=== PATIENT | female | born 1960 | race Caucasian/White ===

== ENCOUNTER → 2021-05-21 15:22 | Outpatient (CLI) | payer OTHER, SELFPAY ==
--- NOTE | ~2021-05-21 | US_ITS ---
EXAMINATION: US thyroid DATE: 05/21/2021 15:49 INDICATION: Nontoxic goiter, unspecified. TECHNIQUE: Multiple ultrasound images of the thyroid were obtained. COMPARISON: Ultrasound 08/17/2018 FINDINGS: The right thyroid lobe measures 3.8 x 1.1 x 1.0 cm. The left thyroid lobe measures 3.6 x 1.1 x 1.0 c m. In the right thyroid lobe, there is a 2 mm nodule. In the left thyroid lobe, there is a 6 mm loren d, hypoechoic, kskbl-hoix-xexl nodule with lobulated margin without echogenic foci (TI-RADS TR4), sta ble from 08/17/2018. IMPRESSION: 1. Small thyroid nodules, likely not clinically significant. No follow-up is needed. Reviewed, dictated and finalized at location E. Y RECORD CLERK IMPRESSION: 1. Small thyroid nodules, likely not clinically significant. No follow-up is ne eded.
--- NOTE | ~2021-05-21 | US_ITS ---
EXAMINATION: US carotid duplex BI DATE: 05/21/2021 15:49 INDICATION: Dizziness and giddiness. Vertigo. TECHNIQUE: Grayscale, color Doppler, and pulsed Doppler images of the cervical carotid arteries were obtained. The degree of vessel stenosis is placed in one of the following categories: normal, <50%, 5 0-69%, >=70% but less than near-occlusion, near-occlusion, or total occlusion. Note that percent sten osis relative to normal distal artery lumen diameter is indirectly measured from velocity measurement s as described by Julien, et al. Radiology 2003; 229:340-346. COMPARISON: None. FINDINGS: RIGHT: The right common carotid artery (CCA) peak systolic velocity (PSV) is 108 cm/s. The right internal ca rotid artery (ICA) PSV is 118 cm/s. The right ICA end-diastolic velocity (EDV) is 49 cm/s. The right ICA/CCA PSV ratio is 1.5. Grayscale and color Doppler images yield an estimate of <50% diameter reduc tion from plaque in the ICA. There is antegrade flow in the right vertebral artery. LEFT: The left CCA PSV is 124 cm/s. The left ICA PSV is 131 cm/s. The left ICA EDV is 56 cm/s. The left ICA /CCA PSV ratio is 1.3. Grayscale and color Doppler images yield an estimate of <50% diameter reductio n from plaque in the ICA. There is antegrade flow in the left vertebral artery. IMPRESSION: 1. <50% stenosis in the right internal carotid artery. 2. <50% stenosis in the left internal carotid artery. Reviewed, dictated and finalized at location E. P KILLER
== END ==
PROVIDERS: PCP Family Medicine; Visit Provider Physician Assistant Medical
DX: E04.2 Nontoxic multinodular goiter (principal); I65.23 Occlusion and stenosis of bilateral carotid arteries
CPT/HCPCS: 76536; 93880

== ENCOUNTER 2021-05-21 16:01 | Outpatient (CLI) | payer OTHER, SELFPAY ==
--- NOTE | 2021-05-21 16:07 | ECG_ITS ---
Measurements Intervals [place] Rate: 76 P: 58 AK: 142 QRS: 6 QRSD: 122 T: 46 QT: 368 QTc: 415 Interpretive Statements SINUS RHYTHM INCOMPLETE RIGHT BUNDLE BRANCH BLOCK CONSIDER INFERIOR INFARCT, AGE INDETERMINATE BASELINE WANDER- V1-V2 ABNORMAL ECG Electronically Signed On 05-21-2021 16:44:44 WEB SEARCH EVALUATOR by Mathieu Oconnor D.O.
== END 2021-05-21 16:02 | disposition home or self-care (01) ==
LOC: ANHCARD 16:03
PROVIDERS: PCP Family Medicine; Visit Provider Physician Assistant Medical
DX: R07.9 Chest pain, unspecified (principal); R94.31 Abnormal electrocardiogram [ECG] [EKG]; I45.10 Unspecified right bundle-branch block
CPT/HCPCS: 93005

== ENCOUNTER 2021-06-08 07:26 | Outpatient (CLI) | payer OTHER, SELFPAY ==
--- NOTE | 2021-06-08 07:58 | ECHO_ITS ---
Patient Info Name: Lizbeth Mascorro Age: 60 years : 1960 Gender: Female Ht: 65 in Wt: 140 lbs BSA: 1.71 m2 HR: 74 bpm BP: 132 / 83 mmHg Technical Quality: Good Exam Date: 06/08/2021 8:08 AM Exam Location: [facility] Patient Status: Outpatient Admit Date: 06/08/2021 Staff Ordering Physician: Padmini Hercules PAC Piper Helper: Xi Huynh RDCS Attending Provider: Padmini Hercules Referring Physician: Delisa OLMOS; Exam Type: CA echo doppler color flow Study Info Indications I45.10 - Unspecified right bundle-branch block Complete two-dimensional, color flow and Doppler transthoracic echocardiogram is performed. Summary 1. Complete two-dimensional, color flow and Doppler transthoracic echocardiogram is performed. 2. Left ventricular chamber dimension is normal. 3. Left ventricular systolic function is normal, estimated at 65-70%. 4. The left ventricular diastolic function is normal. 5. E/e' 9 is minimally elevated. 6. Global longitudinal strain is normal at -17.4%. 7. No pulmonary hypertension, estimated pulmonary arterial systolic pressure is 27 mmHg. Left Ventricle E/e' 9 is minimally elevated. Global longitudinal strain is normal at -17.4%. Left ventricular chamber dimension is normal. Left ventricular systolic function is normal, estimated at 65-70%. The left ventricular diastolic function is normal. Right Ventricle Right ventricular systolic function is normal and with normal TAPSE 2.3 cm. Right ventricular chamber dimension is normal. Left Atria Left atrial chamber dimension is normal. Right Atria Right atrial chamber dimension is normal. Aortic Valve The aortic valve is trileaflet. There is no aortic valve stenosis. There is no aortic valve regurgitation. Pulmonic Valve There is no pulmonic regurgitation. Mitral Valve There is no mitral valve stenosis. There is no mitral valve regurgitation. Tricuspid Valve There is no tricuspid valve regurgitation. No pulmonary hypertension, estimated pulmonary arterial systolic pressure is 27 mmHg. Pericardium/Pleural There is no pericardial effusion. Inferior Vena Cava Normal inferior vena cava with >50% collapse upon inspiration consistent with normal right atrial pressure, 5 mmHg. Aorta The aortic root size at the sinus of Valsalva is normal. Left Ventricular Outflow Tract Name Value Normal LVOT 2D LVOT Diameter 2.0 cm LVOT Doppler LVOT Peak Gradient 4 mmHg LVOT Mean Gradient 2 mmHg LVOT VTI 19 cm LVOT VTI/AV VTI Ratio 0.9 LVOT Stroke Volume 59 ml LVOT CO 4.3 l/min LVOT CI 2.5 l/min/m2 Pulmonic Valve Name Value Normal RVOT Doppler RVOT
--- NOTE | 2021-06-11 16:15 | WPDHOLTEREM ---
Holter/Event Monitor Holter/Event Monitor Date of procedure: 06/08/21 Holter/Event Procedure: 24 Hr Holter Monitor Indications: Dizziness Conclusion: 1. 24 hour holter monitor on 06/08/21. 2. Underlying rhythm is sinus rhythm. HR range 62-136 bpm; average HR 82 bpm. 3. There are 8 premature supraventricular complexes and 4 supraventricular couplets. No supraventricular tachycardia. 4. No premature ventricular complexes. No ventricular tachycardia. 5. No sinoatrial or atrioventricular blocks. No significant pauses greater than 2 seconds. 6. No symptoms available for correlation.
== END 2021-06-08 07:27 | disposition home or self-care (01) ==
LOC: ANHCARD 07:27
PROVIDERS: PCP Family Medicine; Visit Provider Physician Assistant Medical
DX: I45.10 Unspecified right bundle-branch block (principal); R42 Dizziness and giddiness
CPT/HCPCS: 93225; 93226; 93306

== ENCOUNTER → 2023-04-16 09:58 | Outpatient (CLI) | payer OTHER, SELFPAY ==
--- NOTE | ~2023-04-16 | XR_ITS ---
EXAMINATION: XR abdomen/kub 1V DATE: 04/16/2023 11:00 INDICATION: Hematuria. Left flank pain. TECHNIQUE: A supine view of the abdomen on 2 radiographs was obtained. COMPARISON: None. FINDINGS: There are no dilated loops of bowel. There is a large volume of stool in the colon. There i s an 8 x 4 mm calcification in the area of proximal left ureter. IMPRESSION: 1. 8 x 4 mm calcification in the area of proximal left ureter that may be a ureteral stone. Reviewed, dictated and finalized at location E. SERVICE TEAM MEMBER IMPRESSION: 1. 8 x 4 mm calcification in the area of proximal left ureter that may be a ure teral stone.
== END ==
PROVIDERS: PCP Family Medicine; Visit Provider Nurse Practitioner Family
DX: R31.9 Hematuria, unspecified (principal)
CPT/HCPCS: 74018

== ENCOUNTER → 2023-04-17 10:44 | Outpatient (CLI) | payer OTHER, SELFPAY ==
--- NOTE | ~2023-04-17 | CT_ITS ---
Non-contrast CT scan of the Abdomen and Pelvis Clinical indication: Microscopic hematuria Technique: 2.5 mm axial scans were obtained through the abdomen and pelvis without intravenous or or al contrast. Dose reduction technique was used on this scan by utilizing automated exposure control a nd iterative reconstruction technique. The dose-length product (DLP) was 273.58 mGy-cm. Findings: Images through the lung bases reveal no abnormalities. There is a 5-6 mm round stone at the left mid ureter, with mild left hydroureteronephrosis. No right ureteral stone or right hydronephrosis. There is a 3 mm nonobstructing right renal stone present. The liver, spleen, pancreas, gallbladder, and adrenals appear normal. There is no aortic aneurysm. There is no evidence of bowel obstruction. Images through the pelvis were performed. There is no evidence of ascites or lymphadenopathy. Urinary bladder unremarkable. No pelvic mass seen. Impression: 5-6 mm mid left ureteral stone, with mild left hydroureteronephrosis. 3 mm nonobstructing right renal stone. Reviewed, dictated and finalized at [facility]. DAYCARE PROVIDER Impression: 5-6 mm mid left ureteral stone, with mild left hydroureteronephrosis. 3 mm nonobstructing right renal stone.
== END ==
PROVIDERS: PCP Nurse Practitioner Family; Visit Provider Nurse Practitioner Family
DX: N13.2 Hydronephrosis with renal and ureteral calculous obstruction (principal); R93.5 Abnormal findings on diagnostic imaging of other abdominal regions, including retroperitoneum; R31.29 Other microscopic hematuria
CPT/HCPCS: 74176

== ENCOUNTER → 2023-04-29 10:13 | Outpatient (CLI) | payer OTHER, SELFPAY ==
--- NOTE | ~2023-04-29 | CT_ITS ---
Non-contrast CT scan of the Abdomen and Pelvis Clinical indication: Left ureteral stone Technique: 2.5 mm axial scans were obtained through the abdomen and pelvis without intravenous or or al contrast. Dose reduction technique was used on this scan by utilizing automated exposure control a nd iterative reconstruction technique. The dose-length product (DLP) was 296.55 mGy-cm. COMPARISON: 04/17/2023 Findings: Images through the lung bases reveal no abnormalities. 5 mm stone again noted left ureter, with mild distal migration, now at the level of the pelvic brim ( axial image 74). There is minimal fullness of left renal collecting system. Small nonobstructing righ t renal stone again noted. The liver, spleen, pancreas, gallbladder, and adrenals appear normal. There is no aortic aneurysm. There is no evidence of bowel obstruction. Images through the pelvis were performed. There is no evidence of ascites or lymphadenopathy. Urinary bladder unremarkable. No pelvic mass seen. Impression: Mild distal migration of 5 mm left ureteral stone, now present at the level of the L5-S1 disc space. Minimal left hydronephrosis. Stable small nonobstructing right renal stone. Reviewed, dictated and finalized at [facility]. ICE VEHICLE OPERATOR Impression: Mild distal migration of 5 mm left ureteral stone, now present at the level of the L5-S1 disc space. Minimal left hydronephrosis. Stable small nonobstructing right renal stone.
== END ==
PROVIDERS: PCP Nurse Practitioner Family; Visit Provider Nurse Practitioner Family
DX: N20.1 Calculus of ureter (principal); N20.0 Calculus of kidney
CPT/HCPCS: 74176

== ENCOUNTER 2023-05-13 00:37 | Day surgery (SDC) | payer OTHER, SELFPAY ==
[2023-05-05 15:30] VITALS: BMI 23.6
--- NOTE | 2023-05-05 15:35 | PC.NURSE ---
Report to the Outpatient Waiting Room, entrance under the green pavilion located off [facility], at time 0600 on date 05/13/23. Planned Procedure Time: 0730. Time changes happen often and if your time is changed the preop area will call you the afternoon before. - You and your visitor will be asked to self-screen and do not enter if you have any COVID symptoms. - A mask is optional within the hospital at this time. Patients may have clear liquids (water, carbonated beverages, clear teas, apple juice) until 3 hours prior to surgery with a maximum of 20 ounces. - No food from midnight until time of surgery Take the following medications with a SIP of water the morning of surgery: NONE DO NOT STOP ANY OF YOUR OTHER PRESCRIPTION MEDICATIONS PRIOR TO SURGERY ?EXCEPT THE FOLLOWING Medications to discontinue per physician: N/A Date to take last dose: N/A Please no make-up, nail syriac, hairspray, perfume, deodorant, or body powder the day of surgery. No jewelry (including any body piercings) or valuables the day of surgery, leave them at home. Please take a shower or bath the night before, or the morning of, surgery with an antibacterial soap. Wear comfortable, loose fitting clothing. - Jewelry must be removed prior to entering the operating room. Rings and piercings that are not removed may be cut off. - The hospital will not accept responsibility for valuables. - Please leave all valuables, including medications, at home the day of surgery. If you are going home after surgery, a licensed national dedicated truck driver must drive you home. - NO public transportation without another adult if you receive anesthesia. - We recommend that an adult stay with you for 24 hours following discharge. - We also recommend that you do not drive, make important decision, drink alcoholic beverages, or take any drugs that were not prescribed by your health care provider for at least 24 hours after your discharge time. Follow any additional instructions given to you from your surgeon. If you or anyone in your household have experienced Covid symptoms in the past week, please notify your surgeon or the nurse liaison at the phone number below for possible testing. Telephone instructions given to PT - CAROLINA CHAPARRO and asked if any additional questions and then verbalized understanding. Patient advised to call surgeon office or pre surgery nurse liaison [phone] if any additional questions.
[2023-05-13] VITALS (8 sets, daily range): BP systolic 120–148; BP diastolic 64–82; PULSE 62–84; RESP 12–16; TEMP 36.3–36.7; O2SAT 100
--- NOTE | ~2023-05-13 | XR_ITS ---
EXAMINATION: XR retrograde pyelo w/stent LT DATE: 05/13/2023 08:24 INDICATION: Left ureteral stone. TECHNIQUE: 4 intraoperative fluoroscopic views of the abdomen and pelvis were obtained. I was not pre sent. Fluoroscopy exposure time was 21 seconds. COMPARISON: CT abdomen and pelvis 04/29/23 FINDINGS: The left-sided retrograde pyelogram is unremarkable. The final images demonstrate a left in ternal ureteral stent in expected position. IMPRESSION: 1. Left internal ureteral stent in expected position. Reviewed, dictated and finalized at location A. CLEANER MACHINE TENDER
--- NOTE | 2023-05-13 07:14 | WPDANESEPPF ---
Anes - Initial Pre Proc Eval Procedure: Operation Date: 05/13/23 07:30 Proposed Procedures p Cystoscopy, Left Ureteroscopy, Left Retrograde Pyelogram, Left Stone Extraction, Possible Holmium Laser, Possible Left Stent Placement - Kenny Jordan MD Date/Time: 05/13/23 07:14 Surgeon: Kenny Jordan MD Pre Op Diagnosis: Lt Ureteral Stone Patient Data Age: 62 Gender: F Height: 1.65 m Weight: 63 kg Last Vital Signs Temp 36.3 C L 05/13/23 06:16 Pulse 77 05/13/23 06:16 Resp 16 05/13/23 06:16 BP 134/75 05/13/23 06:16 Pulse Ox 100 05/13/23 06:16 O2 Del Method Room Air 05/13/23 06:16 Allergies Allergy/AdvReac Type Severity Reaction Status Date / Time codeine AdvReac Unknown Vomiting Verified 05/13/23 06:11 Home Medications Medication Instructions Recorded Confirmed Type estradiol-norethindrone acet 1 1 tablet PO HS 09/20/19 05/05/23 History mg-0.5 mg tablet scopolamine base 1 mg over 3 days 1 patch transdermal Q72H 04/15/23 05/05/23 History transdermal patch Patient hx anesthesia problems: none Family hx anesthesia problems: none Results Review: All pre-operative results and documents have been reviewed as part of the pre-operative evaluation. [facility] Past Medical History Medical History BMI between 19-24,adult Dysuria Family History Family History Mother Family history of lymphoma Father No problems noted. Sibling No problems noted. Social History Social History Smoking status: Never smoker Second hand tobacco smoke exposure: No Alcohol intake: current Drinks per week: 2 Substance use: never Substance use type: does not use Lack of Transportation: No Lack of Food: Never True Current Housing: I Have Housing Concerned About Future Housing: No Difficulty Paying Gas/Electric Bills: No Difficulty Paying for Meds: No Currently Unemployed: No Education: High School Diploma/GED Difficulty w/ Childcare or Family Care: No Living arrangements: with family Occupation/Education: occupation Additional occupation/education comments: [employer] [place] Gender identity (if verbalized by the patient): Female Spiritual care concerns: No Anes - Eval Final PreProcedure Day of Procedure 05/13/23 07:14 Patient weight: normal Heart: regular rate and rhythm Lungs: clear to auscultation Airway: Mallampati scale class II Neurological: alert and oriented Last oral intake: >/= 8 hours ASA classification: I Emergent: no Anesthetic plan: proceed Anesthesia type and monitoring: general LMA and standard monitoring Results Review: All pre-operative results and documents have been reviewed as part of the pre-operative evaluation. Informed Consent: The patient's anesthetic plan and its attendant risks and benefits were discussed with the patient/family/POA. Questions were solicited and answers provided to the satisfaction of the patient/family/POA.
[2023-05-13] MEDS: LACTATED RINGERS 1,000 ML 30 ML IV CONT (07:23)
[2023-05-13] MEDS: SCOPOLAMINE 1 MG PATCH 1 PATCH TRANSDERM (07:24)
--- NOTE | 2023-05-13 07:39 | WPDHPUPDATE1 ---
History and Physical Update Update Date/Time: 05/13/23 07:39 History and Physical has been reviewed, including an updated exam of the patient. There are NO changes in the patient's condition. Risks, benefits, and alternatives have been discussed and questions answered. Patient agrees to proceed with procedure. Proceed with cystosocpy, left retrograde, left ureteroscopy with stone extraction, laser, stent placement
[2023-05-13] MEDS: ceFAZolin 2 GM/D5W 50 ML 2 GM/50 ML BAG IVPB (07:45)
[2023-05-13] MEDS: LIDOCAINE HCL 2% GEL UROJET 10 ML PKG MUCOUS MEM (07:45)
--- NOTE | 2023-05-13 08:32 | P.OP_ITS ---
Procedure Note - Detailed Date of Procedure 05/13/23 Pre-op Diagnosis Lt Ureteral Stone Post-op Diagnosis Same Procedure Performed CYSTOSCOPY, LEFT RETROGRADE PYELOGRAM, LEFT URETEROSCOPY WITH HOLMIUM LASER OF STONE, STONE EXTRACTION, LEFT URETERAL STENT PLACEMENT 20 KOSOVAN CONTOUR Surgeon Kenny Jordan MD Anesthesia General Description of Procedure PATIENT IS TAKEN THE OPERATIVE SUITE CORRECTLY IDENTIFIED. ONCE ANESTHESIA WAS OBTAINED SHE WAS PLACED IN A DORSAL LITHOTOMY POSITION AND PREPPED AND DRAPED USUAL STERILE FASHION. TWENTY-TWO KOSOVAN SCOPE WAS INSERTED THE BLADDER. THERE IS NO TUMORS NOTED. THERE WAS SOME MILD ERYTHEMA AROUND THE LEFT URETERAL ORIFICE. GUIDEWIRE WAS INSERTED. ORIFICE WAS DILATED WITH 8/10 DILATOR. RIGID URETERAL SCOPE WAS INSERTED IN. STONE WAS VISUALIZED IN THE INTRAMURAL URETER. IT WAS TOO LARGE TO RETRIEVED IN 1 PIECE. USING 200 MICRON FIBER WE LASERED THE STONE INTO VERY SMALL PIECES. SOME OF THESE WERE SENT FOR ANALYSIS. REINSPECTION REVEALED NO RESIDUAL STONES. PYELOGRAM WAS THEN PERFORMED. 4.8 CONTOUR STENT WAS THEN PLACED WITH THE PROXIMAL END COILED IN THE RENAL PELVIS AND THE DISTAL IN THE BLADDER. BLADDER WAS DRAINED. 2% VISCOUS LIDOCAINE WAS INSERTED INTO THE URETHRA PATIENT IS TAKEN RECOVERY STABLE CONDITION. SHE WILL FOLLOW-UP WEEK'S TIME FOR STENT REMOVAL. THIS COMPLETES DICTATION. PLEASE SEND A COPY THIS TO MY OFFICE. Estimated Blood Loss 0 Drains Yes Packing No Pathology Yes Complications No immediate complications Condition Stable Disposition PACU
== END 2023-05-13 10:15 | disposition home or self-care (01) ==
PROVIDERS: PCP Family Medicine; Visit Provider Urology
PROC: (CPT 52352; principal; 2023-05-13 07:30)
DX: N20.1 Calculus of ureter (principal)
CPT/HCPCS: 52356; 74420; 82365; 88300; A9270; C1769; C2617; J0690; J1100; J2405; J2704; J3010; J7120; Q9966

== ENCOUNTER 2023-07-11 11:46 | Outpatient (CLI) | payer OTHER, SELFPAY ==
--- NOTE | ~2023-07-11 | XR_ITS ---
XR abdomen/kub 1V 07/11/2023 13:23 INDICATION: Renal stone TECHNIQUE: KUB COMPARISON: None FINDINGS: Bowel gas pattern is normal. There is no evidence of free air, mass, organomegaly, ascites or obstruction. There is a punctate stone in the lower pole the right kidney.. The bones appear int act. IMPRESSION: 1: Right nephrolithiasis. Reviewed, dictated and finalized at location B. IMPRESSION: 1: Right nephrolithiasis.
== END 2023-07-11 11:47 ==
LOC: MICIMG 11:48
PROVIDERS: PCP Family Medicine; Visit Provider Urology
DX: N20.0 Calculus of kidney (principal)
CPT/HCPCS: 74018

== ENCOUNTER 2023-09-17 16:06 | Outpatient (CLI) | payer OTHER, SELFPAY ==
--- NOTE | ~2023-09-17 | XR_ITS ---
Cervical Spine: AP, lateral, open-mouth views Clinical History: Pain Findings: The normal lordotic curve is maintained. No fracture identified. Minimal grade 1 anterolist hesis of C4-C5 present. There is advanced degenerative disc narrowing at C5-C6. There is mild to mode rate facet arthropathy throughout the cervical spine. Pre-vertebral soft tissues are unremarkable. Impression: Moderate degenerative spondylosis, as above. Minimal grade 1 anterolisthesis of C4 over C5. Reviewed, dictated and finalized at location . Impression: Moderate degenerative spondylosis, as above. Minimal grade 1 anterolisthesis of C4 over C5.
== END 2023-09-17 16:07 ==
PROVIDERS: PCP Physician Assistant Medical; Visit Provider Physician Assistant Medical
DX: M47.892 Other spondylosis, cervical region (principal); M43.12 Spondylolisthesis, cervical region
CPT/HCPCS: 72040

== ENCOUNTER 2023-09-29 11:26 | Outpatient (CLI) | payer OTHER, SELFPAY ==
--- NOTE | ~2023-09-29 | MR_ITS ---
EXAMINATION: MR cervical spine wo con DATE: 09/29/2023 12:07 INDICATION: Anesthesia of skin. Neck pain. TECHNIQUE: Magnetic resonance imaging (MRI) of the cervical spine was performed without intravenous c ontrast. COMPARISON: Cervical spine MRI 08/18/2018 FINDINGS: There is 2 mm retrolisthesis of C5 on C6. Vertebral body heights are normal. There is sever bekah decreased disc height at C5-C6 and moderately decreased disc height at C6-C7. The spinal cord sig nal intensity is normal. The following disc levels are specifically discussed: C2-C3: The disc does not extend beyond the endplate margin. There is no uncovertebral joint osteoarth ritis. There is moderate right and severe left facet joint osteoarthritis. There is no neural foramin al stenosis. There is no central canal stenosis. C3-C4: The disc does not extend beyond the endplate margin. There is mild bilateral uncovertebral nicolas nt osteoarthritis. There is mild right and severe left facet joint osteoarthritis. There is no neural foraminal stenosis. There is no central canal stenosis. C4-C5: The disc is bulging. There is mild bilateral uncovertebral joint osteoarthritis. There is selvin re bilateral facet joint osteoarthritis. There is mild bilateral neural foraminal stenosis. There is mild central canal stenosis. C5-C6: The disc is bulging. There is severe bilateral uncovertebral joint osteoarthritis. There is se roxanna right and moderate left facet joint osteoarthritis. There is moderate right and mild left neural foraminal stenosis. There is moderate central canal stenosis with ventral and dorsal indentation of the spinal cord. C6-C7: The disc is bulging. There is mild bilateral uncovertebral joint osteoarthritis. There is selvin re bilateral facet joint osteoarthritis. There is mild bilateral neural foraminal stenosis. There is mild central canal stenosis. C7-T1: The disc does not extend beyond the endplate margin. There is no uncovertebral joint osteoarth ritis. There is severe bilateral facet joint osteoarthritis. There is mild bilateral neural foraminal stenosis. There is no central canal stenosis. IMPRESSION: 1. Severe cervical spondylosis, stable from 08/18/2018. Reviewed, dictated and finalized at location E.
== END 2023-09-29 11:27 ==
LOC: GOSHIMG 11:27
PROVIDERS: PCP Physician Assistant Medical; Visit Provider Physician Assistant Medical
DX: G89.29 Other chronic pain (principal); M54.2 Cervicalgia; R20.2 Paresthesia of skin; R42 Dizziness and giddiness; R20.0 Anesthesia of skin; M43.02 Spondylolysis, cervical region
CPT/HCPCS: 72141

== ENCOUNTER 2023-10-21 08:34 | Outpatient (CLI) | payer OTHER, SELFPAY ==
--- NOTE | 2023-10-21 11:30 | NEURO_ITS ---
Impression: # Complains of numbness of right index and middle fingers. Non- Diabetic. # Evolving Carpal Tunnel Syndrome, right more than left. # No ulnar neuropathy. # Ulnar to median cross innervation noted below the elbow level. # Normal needle/EMG exam including proximal muscles. Nerve Conduction Studies Anti Sensory Summary Table Stim Site NR Peak (ms) P-T Amp (?V) Site1 Site2 Delta-P (ms) Dist (cm) Pan (m/s) Left Median Anti Sensory (2-3nd Digit) Wrist 3.6 35.3 Wrist 2-3nd Digit 3.6 14.0 39 Wrist 3.6 54.7 Wrist 2-3nd Digit 3.6 14.0 39 Right Median Anti Sensory (2-3nd Digit) Wrist 3.7 76.3 Wrist 2-3nd Digit 3.7 14.0 38 Wrist 3.8 62.0 Wrist 2-3nd Digit 3.7 14.0 38 Left Radial Anti Sensory (Base 1st Digit) Wrist 2.8 63.5 Wrist Base 1st Digit 2.8 0.0 Right Radial Anti Sensory (Base 1st Digit) Wrist 2.5 19.0 Wrist Base 1st Digit 2.5 0.0 Left Ulnar Anti Sensory (5th Digit) Wrist 2.9 77.4 Wrist 5th Digit 2.9 14.0 48 Right Ulnar Anti Sensory (5th Digit) Wrist 2.7 66.7 Wrist 5th Digit 2.7 14.0 52 Motor Summary Table Stim Site NR Onset (ms) O-P Amp (mV) Site1 Site2 Delta-0 (ms) Dist (cm) Pan (m/s) Left Median Motor (Abd Poll Brev) Wrist 3.5 8.5 Elbow Wrist 5.4 30.0 56 Elbow 8.9 8.6 ELB/ADM Wrist 0.2 0.0 Right Median Motor (Abd Poll Brev) Wrist 3.8 10.3 Elbow Wrist 4.8 26.0 54 Elbow 8.6 6.4 Left Ulnar Motor (Abd Dig Minimi) Wrist 2.8 6.7 A Elbow Wrist 4.9 28.0 57 A Elbow 7.7 6.1 Right Ulnar Motor (Abd Dig Minimi) Wrist 2.2 7.0 A Elbow Wrist 5.2 29.0 56 A Elbow 7.4 7.0 F Wave Studies NR F-Lat (ms) L-R F-Lat (ms) Left Median (Mrkrs) (Abd Poll Brev) 29.16 0.22 Right Median (Mrkrs) (Abd Poll Brev) 28.95 0.22 Left Ulnar (Mrkrs) (Abd Dig Min) 27.84 0.88 Right Ulnar (Mrkrs) (Abd Dig Min) 28.71 0.88 EMG Side Muscle Nerve Root Ins Act Fibs Amp Dur Recrt Comment Right 1stDorInt Ulnar C8-T1 Nml Nml Nml Nml Nml Right Ext Indicis Radial (Post Int) C7-8 Nml Nml Nml Nml Nml Right Ext Digitorum Radial (Post Int) C7-8 Nml Nml Nml Nml Nml Right BrachioRad Radial C5-6 Nml Nml Nml Nml Nml Right PronatorTeres Median C6-7 Nml Nml Nml Nml Nml Right Abd Poll Brev Median C8-T1 Nml Nml Nml Nml Nml Right ABD Dig Min Ulnar C8-T1 Nml Nml Nml Nml Nml Left 1stDorInt Ulnar C8-T1 Nml Nml Nml Nml Nml Left Ext Indicis Radial (Post Int) C7-8 Nml Nml Nml Nml Nml Left Ext Digitorum Radial (Post Int) C7-8 Nml Nml Nml Nml Nml Left BrachioRad Radial C5-6 Nml Nml Nml Nml Nml Left PronatorTeres Median C6-7 Nml Nml Nml Nml Nml Left Abd Poll Brev Median C8-T1 Nml Nml Nml Nml Nml Left ABD Dig Min Ulnar C8-T1 Nml Nml Nml Nml Nml Right Biceps Musculocut C5-6 Nml Nml Nml Nml Nml Right Triceps Radial C6-7-8 Nml Nml Nml Nml Nml Right Deltoid Axillary C5-6 Nml Nml Nml Nml Nml Left Biceps Musculocut C5-6 Nml Nml Nml Nml Nml Left Triceps Radial C6-7-8 Nml Nml Nml Nml Nml Left Deltoid Axillary C5-6 Nml Nml Nml Nml Nml MTDD
== END 2023-10-21 08:35 | disposition home or self-care (01) ==
LOC: ANHNEURO 08:36
PROVIDERS: PCP Physician Assistant Medical; Visit Provider Physician Assistant Medical
DX: G56.03 Carpal tunnel syndrome, bilateral upper limbs (principal)
CPT/HCPCS: 95886; 95911

== ENCOUNTER 2024-05-21 11:33 | Outpatient (CLI) | payer OTHER, SELFPAY ==
--- NOTE | ~2024-05-21 | XR_ITS ---
CHEST RADIOGRAPH, PA AND LATERAL CLINICAL HISTORY: R06.02 - Shortness of breath . COMPARISON: None available TECHNIQUE: PA and lateral views of the chest. FINDINGS The cardiomediastinal silhouette is unremarkable. The lungs are clear. Visualized osseous structures and soft tissues are unremarkable. IMPRESSION: No focal infiltrate or effusion. Reviewed, dictated and finalized at location A. [employer]GE [employer]
== END 2024-05-21 11:34 | disposition home or self-care (01) ==
PROVIDERS: PCP Family Medicine; Visit Provider Nurse Practitioner Adult Health
DX: R06.02 Shortness of breath (principal)
CPT/HCPCS: 71046

== ENCOUNTER 2024-08-19 11:49 | Outpatient (CLI) | payer OTHER, SELFPAY ==
--- NOTE | ~2024-08-19 | MM_ITS ---
EXAMINATION: MM scrn suzanna implant BI w humphrey HISTORY: Screening mammogram TECHNIQUE: Craniocaudal and mediolateral oblique 3-D tomosynthesis images with implant displacement a nd synthetic 2-D images were generated. Craniocaudal and mediolateral oblique views of the breasts wi thout implant displacement were obtained using full field digital mammography. CAD analysis was submi tted and interpreted. COMPARISON: Comparison to multiple prior studies sequentially, with oldest reviewed study dated 02/12. BREAST PARENCHYMAL COMPOSITION: Dense: The breasts are heterogeneously dense, which may obscure small masses FINDINGS: There is no evidence of suspicious mass, calcification, or architectural distortion to sugg est malignancy in either breast. There has been no suspicious interval change. IMPRESSION: 1. No mammographic evidence of malignancy. 2. Recommend routine screening mammography in one year. Reviewed, dictated and finalized at location A.
== END 2024-08-19 11:50 | disposition home or self-care (01) ==
LOC: MICIMG 11:49
PROVIDERS: PCP Family Medicine; Visit Provider Obstetrics & Gynecology
DX: Z12.31 Encounter for screening mammogram for malignant neoplasm of breast (principal)
CPT/HCPCS: 77063; 77067

== ENCOUNTER 2025-01-11 00:34 | Day surgery (SDC) | payer OTHER, SELFPAY ==
--- OUTSIDE RECORDS SUMMARY | 2001-02-18 09:00 | XMS_ITS | Continuity of Care Document ---
Author Organization [facility] Address [id number] [place] [address] [address] [place] [address] Phone Care Team Providers Care Doggy Daycare Activities Director Name Role Phone Friedman OD, Mino Unavailable Unavailable Advance Directives Directive Yes / No Effective Date File Name No Information Encounters Encounter Description Practice Location Reason(s) For Visit Diagnoses Date Provider Providers Copied on Encounter [facility], [id number] [place] [address] [address], [place], [place], [id number], [place] tel:[phone] [facility] No Information Nov-0 7-200 1 Friedman OD Mino. [address] [facility] [place] , [address], [place], [address], [place]. tel:[phone] Family History Family Member Type Diagnosis Age At Onset No Information Payers Payer name Insurance type Covered alliance party ID Authoriza tion(s) No Information Social History Type Description Quantity Date Captured Comments Sex Female Smoking Status No Information Chief Complaint And Reason For Visit No Information Reason For Referral Reason For Referral No Information History Of Present Illness Encounter Date Complaint History Of Prese nt Illness No Information Functional Status Date Functional Assessmen t No Information Instructions Date Instruction Additional Infor mation No Information Assessments Type Assessment Date No Information Patient Care Teams Name Effective Dates (start - stop) Status Members No Information
[2024-12-28 09:22] VITALS: BMI 23.3
--- OUTSIDE RECORDS SUMMARY | 2025-01-11 00:37 | XMS_ITS | Clinical Summary ---
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 10 Capsule 05/21/2024 12:42 PM [employer] 05/21/2024 Active Encounters Date Type Department Care Team Description 11/16/2024 External Device Data ST[facility] ABSTRACTION Provider, Abstract from Last 3 Months Social History Tobacco Use Types Packs/Day Years Used Date Smoking Tobacco: Never Assessed Comments Unknown Sex and Gender Information Value Date Recorded Sex Assigned at Not on file Legal Sex Female 12:05 PM [employer] Gender Identity Not on file Sexual Orientation Not on file Plan of Treatment Health Maintenance Due Date Last Done Comments DTAP/TDAP/TD VACCINES (1 - Tdap) 1980 HPV/Cotest (21-29) 1982 CERVICAL CANCER SCREENING 11/02/1991 HPV/Cotest (30-65) 11/02/1991 PAP SMEAR 11/02/1991 BREAST CANCER SCREENING 2001 COLORECTAL SCREENING 2006 Colorectal Cancer Screening 2006 FIT-DNA Q 3 years 2006 FIT/FOBT Q 1 year 2006 Flex Sig/CT Colonography Q 5 years 2006 ZOSTER VACCINE (1 of 2) 11/02/2011 INFLUENZA VACCINE (#1) 2024 RSV VACCINE (60+ or ) (1 - 1-dose 75+ series) 2036 Insurance RX [employer]
--- OUTSIDE RECORDS SUMMARY | 2025-01-11 00:37 | XMS_ITS | Clinical Summary ---
Author Organization [facility] Address [address] [place] [address] Care Team Providers Care Geospatial Imagery Intelligence Analyst Name Role Phone Baltazar Chanel MD Primary Care Provider + [phone] Allergies Active Allergy Reactions Criticality Noted Date Comments Codeine Vomiting Low 09/10/2018 Medications estradiol-noret hindrone (ACTIVELLA) 1-0.5 mg per tablet 08/19/19 19 Active multivitamin tablet TK 1 T PO QD 2 08/11/19 19 Active HYDROcodone-raymond taminophen (NORCO) 5-325 mg per tablet hydrocodone 5 mg-acetaminophen 325 mg tablet Active calcium carbonate-vitam in D3 (CALTRATE 600 + D) 1500 mg (600 mg elemental) -400 units per tablet Take 1 tablet(s) twice a day by oral route. Active ondansetron (ZOFRAN) 8 mg tablet ondansetron HCl 8 mg tablet Active oxyCODONE-aceta minophen (PERCOCET) 5-325 mg per tablet oxycodone-acetamin ophen 5 mg-325 mg tablet Active nitrofurantoin monohydrate (MACROBID) 100 mg capsule nitrofurantoin monohydrate/macroc rystals 100 mg capsule Active meloxicam (MOBIC) 15 mg tablet Take 1 tablet (15 mg total) by mouth daily 10/11/19 24 Active scopolamine 1 mg over 3 days patch 3 day APPLY 1 PATCH TOPICALLY TO THE SKIN EVERY 72 HOURS 10/28/19 24 Active tiZANidine (ZANAFLEX) 2 mg tablet Take 1 tablet (2 mg total) by mouth 3 (three) times a day as needed 09/14/19 24 Active SUMAtriptan (IMITREX) 100 mg tablet sumatriptan 100 mg tablet Active tobramycin (TOBREX) 0.3 % ophthalmic solution tobramycin 0.3 % eye drops Active methocarbamoL (ROBAXIN) 500 mg tabletIndicatio ns:Other spondylosis with myelopathy, cervical region Take 1 tablet (500 mg total) by mouth 2 (two) times a day as needed for muscle spasms 60 tablet 12/02/19 24 Active Active Problems Problem Noted Date Diagnosed Date Recurrent urinary tract infection 12/02/2023 Right bundle branch block 11/14/2021 Neck pain 09/10/2018 Immunizations Immunization Administration Dates Next Due Influenza, Quadrivalent, Spl it, Preservative Free, Intramuscular 01/31/2020 Medical History Medical History Date Comments RBBB (right bundle branch block) Headache Chest pain Thyroid enlargement Family History Medical History Relation Name Comments Asthma Father Cancer Mother Relation Name Status Comments Father Alive Mother Alive Social History Tobacco Use Types Packs/Day Years Used Date Smoking Tobacco: Never Smokeless Tobacco: Never Tobacco Cessation:Counseling Given: Not Answered Alcohol Use Standard Drinks/Week Comments Yes 0 (1 standard drink = 0.6 oz pur e alcohol) AUDIT-C Answer Date Recorded Q1: How often do you have a drink containing alc ohol? Monthly or less 12/02/2023 Q2: How many drinks containi ng alcohol do you have on a typical day when you are drinking? 1 or 2 12/02/2023 Q3: How often do you have si x or more drinks on one occasion? Never 12/02/2023 Personal Safety Answer Date Recorded Getting School Help Needed Not on file 06/28 Comments Unknown Sex and Gender Information Value Date Recorded Sex Assigned at Not on file Legal Sex Female 9:32 PM [employer] Gender Identity Not on file Sexual Orientation Not on file Obstetrics History Last Filed Vital Signs Vital Sign Reading Time Taken Comments Blood Pressure 141/88 12/02/2023 1:00 PM CDT Pulse 81 12/02/2023 1:00 PM CDT Temperature - - Respiratory Rate - - Oxygen Saturation 99% 11/14/2021 3:27 PM CDT Inhaled Oxygen Concentration - - Weight 64.5 kg (142 lb 3.2 oz) 12/02/2023 1:00 P M CDT Height 164.5 cm (5' 4.75) 12/02/2023 1:00 PM CD T Body Mass Index 23.85 12/02/2023 1:00 PM CDT Plan of Treatment Health Maintenance Due Date Last Done Comments Cervical Cancer Screening 1961 Colon Cancer Screening-Colonoscopy 1961 Depression Screening 1961 Hepatitis C Screening 1961 DTaP/Tdap/Td Vaccine (1 - Tdap) 1972 Hepatitis B Screening 11/02/1979 Regular Well Visit/Exam 18-64 11/02/1979 Zoster Vaccine (1 of 2) 11/02/2011 Breast Cancer Screening-Mammogram 05/07/2023 05/07/2022, 02/27/2021, 01/13/2020, Additional history exists Influenza Vaccine (#1) 2024 01/31/2020 Pneumococcal vaccine <65 Aged Out No longer eligible based on patient's age to complete this topic Procedures Procedure Name Priority Date/Time Associated Diagnosis Comments MAMMOGRAPHY CONSULTATION Routine 01/17/2014 3:50 PM CDT from Last 3 Months or Most Recently Relevant to Health Maintenance Results * MAMMOGRAPHY CONSULTATION (01/17/2014 3:50 PM CDT) Anatomical Region Laterality Modality Breast Mammography 01/17/2014 3:50 PM CDT Narrative 01/17/2014 5:01 PM CD[address]ANDA LARA [facility] FINAL REPORT ACC# Date Time Exam [id number] Jan 17, 2014 15:50:00 [facility] [id number] [facility] Refer Level 1 EXAMINATION: RADIOLOGY CONSULTATION (BREAST IMAGING) REQUESTING PHYSICIAN: Mino Reyes MD CHIEF COMPLAINT: Abnormal outside breast imaging examinations HISTORY OF PRESENT ILLNESS: Lizbeth Mascorro is a 53-year-old female who underwent a bilateral diagnostic mammogram at [facility] on 10/22/2013. An asymmetry was identified in the LEFT breast. Ultrasound of the area was recommended (BI-RADS category 0). A LEFT breast ultrasound was performed that same day. No definite mass was noted on the ultrasound to correlate with the asymmetry identified on mammography. MRI of the left breast was recommended (BI-RADS category 0). The patient was referred here by Dr. Mino Reyes for a second opinion regarding these findings and recommendations. PAST MEDICAL / SURGICAL HISTORY: The patient has no personal history of breast or ovarian cancer. Her first menses was at age 14. She is 2, para 2. First life at age 22. She is unsure of her menopausal status. She is on estrogen and progesterone to manage migraine headaches and does not have periods at this time. She took -control pills beginning at age 19. Duration unknown. Surgical history is significant for bilateral breast implants in December 2008 and tubal ligation in 2009. CURRENT MEDICAL PROBLEMS: Migraine headaches MEDICATIONS: Estrogen and progesterone; Imitrex as needed for migraine headaches ALLERGIES: Codeine (vomiting) FAMILY HISTORY: The patient's family history is significant for a maternal great grandmother diagnosed with breast cancer in her 70s. There is a history of cystic breasts on her mother's side. SOCIAL HISTORY: She is single and a machine farmworker. She does not smoke cigarettes. She drinks approximately 4 alcoholic beverages per week. REVIEW OF SYSTEMS: The patient is a well-developed well-nourished female in no acute distress. She is conversant and a good historian. Review of systems is significant for fatigue. Again, her the menopausal status is uncertain. Review of systems is otherwise unremarkable. PHYSICAL EXAM: Comprehensive clinical breast examination was performed by Yolanda Lara, MSN, ACNS-. Visual inspection of the breasts reveals well-healed scars in the inframammary fold (breast implants in 2008). No significant palpable abnormality is identified within either breast, or within the bilateral axillary and bilateral supraclavicular regions. REVIEW OF OUTSIDE IMAGING: The patient's outside breast imaging examinations were reviewed by Dr. Leesa Sanabria. A LEFT diagnostic mammogram was recommended and performed today; please see that separate report. IMPRESSION: The results of the negative clinical breast examination, review of outside imaging examinations and today's additional imaging studies were discussed with Dr. Leesa Sanabria. Per Dr. Sanabria's report, no suspicious abnormality was identified in the area of concern on the recent diagnostic mammogram. RECOMMENDATION: Annual screening mammography is recommended (BI-RADS category 1). These findings and recommendations were discussed in detail with the patient. All of her questions were answered. The patient verbalized understanding of today's findings and recommendations. She will be due for a bilateral screening mammogram in October 2014. cc: Mino Reyes M.D. Requested By: Dictated By: FÉLIX ADAN on Jan 17 2014 5:01P This document has been electronically signed by: FÉLIX ADAN on Jan 17 2014 5:01P Procedure Note Provider, MD Marzena - 08/11/2016 FÉLIX ADAN FINAL REPORT ACC# Date Time Exam [id number] Jan 17, 2014 15:50:00 [facility] [id number] [address] Cons MD Refer Level 1 EXAMINATION: RADIOLOGY CONSULTATION (BREAST IMAGING) REQUESTING PHYSICIAN: Mino Reyes MD CHIEF COMPLAINT: Abnormal outside breast imaging examinations HISTORY OF PRESENT ILLNESS: Lizbeth Mascorro is a 53-year-old female who underwent a bilateral diagnostic mammogram at [facility] on 10/22/2013. An asymmetry was identified in the LEFT breast. Ultrasound of the area was recommended (BI-RADS category 0). A LEFT breast ultrasound was performed that same day. No definite mass was noted on the ultrasound to correlate with the asymmetry identified on mammography. MRI of the left breast was recommended (BI-RADS category 0). The patient was referred here by Dr. Mino Reyes for a second opinion regarding these findings and recommendations. PAST MEDICAL / SURGICAL HISTORY: The patient has no personal history of breast or ovarian cancer. Her first menses was at age 14. She is 2, para 2. First life at age 22. She is unsure of her menopausal status. She is on estrogen and progesterone to manage migraine headaches and does not have periods at this time. She took -control pills beginning at age 19. Duration unknown. Surgical history is significant for bilateral breast implants in December 2008 and tubal ligation in 2009. CURRENT MEDICAL PROBLEMS: Migraine headaches MEDICATIONS: Estrogen and progesterone; Imitrex as needed for migraine headaches ALLERGIES: Codeine (vomiting) FAMILY HISTORY: The patient's family history is significant for a maternal great grandmother diagnosed with breast cancer in her 70s. There is a history of cystic breasts on her mother's side. SOCIAL HISTORY: She is single and a machine farmworker. She does not smoke cigarettes. She drinks approximately 4 alcoholic beverages per week. REVIEW OF SYSTEMS: The patient is a well-developed well-nourished female in no acute distress. She is conversant and a good historian. Review of systems is significant for fatigue. Again, her the menopausal status is uncertain. Review of systems is otherwise unremarkable. PHYSICAL EXAM: Comprehensive clinical breast examination was performed by Yolanda Lara, DONNA, ACNS-. Visual inspection of the breasts reveals well-healed scars in the inframammary fold (breast implants in 2008). No significant palpable abnormality is identified within either breast, or within the bilateral axillary and bilateral supraclavicular regions. REVIEW OF OUTSIDE IMAGING: The patient's outside breast imaging examinations were reviewed by Dr. Leesa Sanabria. A LEFT diagnostic mammogram was recommended and performed today; please see that separate report. IMPRESSION: The results of the negative clinical breast examination, review of outside imaging examinations and today's additional imaging studies were discussed with Dr. Leesa Sanabria. Per Dr. Sanabria's report, no suspicious abnormality was identified in the area of concern on the recent diagnostic mammogram. RECOMMENDATION: Annual screening mammography is recommended (BI-RADS category 1). These findings and recommendations were discussed in detail with the patient. All of her questions were answered. The patient verbalized understanding of today's findings and recommendations. She will be due for a bilateral screening mammogram in October 2014. cc: Mino Reyes M.D. Requested By: Dictated By: FÉLIX ADAN on Jan 17 2014 5:01P This document has been electronically signed by: FÉLIX ADAN on Jan 17 2014 5:01P Historical Provider MD [facility] MAMMO PROCEDURES Rhina l Result from Last 3 Months or Most Recently Relevant to Health Maintenance Insurance [facility] Care Teams Geospatial Imagery Intelligence Analyst Relationship Specialty Start Date End Date Baltazar Chanel MD PCP - General Family Medicine 08/26/18
--- OUTSIDE RECORDS SUMMARY | 2025-01-11 00:37 | XMS_ITS | Data Portability ---
Author Organization [facility] Address [address] [place] [address] Care Team Providers Care Streetsweeper Operator Name Role Phone RAJEEV ROSARIO [facility] [phone] Assessment No assessment recorded. Plan of Treatment Reminders Order Date Submit Date Provider Last Modified By Organization Details Last Modified Time Details Appointments None recorded . Lab pap, IG + reflex HPV 2021 022 ART [facility], [address], [address], [place], [address], 2 16:11:23 noninvas yue colorect al cancer DNA + occult blood screenin g, stool 2020 021 ART [facility] (Cologuard Orders Only), [address], [address], [place], [address], 2 12:45:11 pap, IG + HPV, cervical 2019 020 ART [facility], [address] [facility], [address], [place], [address], 0 14:10:41 urinalys is, dipstick 2019 020 jeanna In-Office Order, Internal Use Only DO Not Attach Compendium DO Not Attach Compendium, Do Not Delete/merge, [id number] 0 16:35:41 bacteria l vaginosi s panel, vaginal 082019 JERROD [facility] (Centralized Electronic Ordering - All Locations), Patient Can Go To The Location Of Their Choice, 0 08:15:44 culture, vaginal/ rectal, streptoc occus group B 2019 JERROD [facility] (Centralized Electronic Ordering - All Locations), Patient Can Go To The Location Of Their Choice, 0 08:15:44 HbA1c (hemoglo bin A1c), blood 2017 JERROD [facility], [address] [facility], [address], [place], [address], 8 08:30:52 TSH, ultra-se nsitive, serum 2017 JERROD [facility], [address] [facility], [address], [place], [address], 8 08:30:55 lh + FSH, serum 2017 JERROD [facility] (Centralized Electronic Ordering - All Locations), Patient Can Go To The Location Of Their Choice, 8 08:30:52 dhea-sul fate, serum 2017 JERROD [facility] (Centralized Electronic Ordering - All Locations), Patient Can Go To The Location Of Their Choice, 8 08:30:53 testoste riri, total, serum 2017 JERROD [facility] (Centralized Electronic Ordering - All Locations), Patient Can Go To The Location Of Their Choice, 8 08:30:54 CMP, serum or plasma 2017 JERROD [facility] (Centralized Electronic Ordering - All Locations), Patient Can Go To The Location Of Their Choice, 8 08:30:49 lipid panel, serum 2017 JERROD [facility] (Centralized Electronic Ordering - All Locations), Patient Can Go To The Location Of Their Choice, 8 08:30:50 estradio l, serum 2017 018 JERROD [facility], [address], [address], [place], [address], 8 08:30:56 HbA1c (hemoglo bin A1c), blood 2017 018 [email or web address] [facility], [address] [place], [place] [address], [address], [place], [address], 8 11:35:50 TSH, ultra-se nsitive, serum 2017 018 [email or web address] [facility], [address] [facility], [address], [place], [address], 8 11:35:50 urinalys is, dipstick 2017 jeanna In-Office Order, Internal Use Only DO Not Attach Compendium DO Not Attach Compendium, Do Not Delete/merge, [id number] 8 18:55:23 pap, IG + HPV, cervical - please use Z11.51 in addition to code above for HPV testing. 2017 JERROD [facility], [address], [address], [place], [address], 8 10:36:52 vitamin B12 + folate, serum or blood 2017 JERROD [facility], [facility] [place], [address], [place], [address], 8 08:30:51 CBC w/ auto diff 2017 018 JERROD [facility], [address], [address], [place], [address], 8 08:30:48 vitamin D, 25-hydro xy, total, serum 2017 018 JERROD [facility], [address], [address], [place], [place], [address], 8 08:30:56 estradio l, serum 2015 016 DBA_PATCH_20 [id number] [facility], [address], [address], [place], [address], 6 04:32:55 FSH (follicl e-stimul ating hormone) , serum 2015 016 DBA_PATCH_20 [id number] [facility], [address], [address], [place], [address], 6 04:32:55 lh (luteini zing hormone) , serum 2015 016 DBA_PATCH_20 [id number] [facility], [address], [address], [place], [address], 6 04:33:00 prolacti n, serum 2015 016 DBA_PATCH_20 [id number] [facility], [address], [address], [place], [address], 6 04:33:00 lipid panel, serum 2015 016 DBA_PATCH_20 [id number] [facility], [address], [address], [place], [address], 6 04:32:39 HbA1c (hemoglo bin A1c), blood 2015 016 DBA_PATCH_20 [id number] [facility], [address], [address], [place], [address], 6 04:32:39 TSH, ultra-se nsitive, serum 2015 016 DBA_PATCH_20 [id number] [facility], [address] [facility], [address], [place], [address], 6 04:32:18 pap, IG + HPV, cervical 2015 016 DBA_PATCH_20 [id number] [facility], [address] [facility] [address], [place], [address], 6 04:32:27 Referral neurolog ist [facility] 2017 [facility], [address] [facility], [place], [address], 9 10:00:27 Procedures None recorded . Surgeries None recorded . Imaging US, pelvis, transabd ominal + transvag inal 2021 022 [facility], [address] [place] [address] [place], [address], 3 17:32:46 MAMMO, screenin g, bilatera l 2021 022 [facility], [address] [place] [address] [place], [address], 3 18:41:04 DEXA, axial skeleton 2020 021 [facility], [address] [place] [address] [place], [address], 1 17:06:40 MAMMO, screenin g, bilatera l 2020 021 [facility], [address] [place] [address] [place], [address], 1 12:51:02 MAMMO, screenin g, bilatera l 2019 020 [facility], [address] [place] [address], [place], [address], 0 18:03:46 MAMMO, diagnost ic, digital, bilatera l 2017 018 [email or web address] [facility], [address] [place] [address], [address], 8 17:11:06 MAMMO, screenin g, digital, bilatera l 2015 016 DBA_PATCH_20 [id number] [facility], [address] [place] [address], [address], 6 04:32:21 Medication Orders estradio l-noreth indrone acet 0.5 mg-0.1 mg tablet 2021 [employer] [facility] #83074, [address] [place], [place], [id number], 2 15:10:38 multivit belle tablet 2020 [email or web address], [address] [place] [address], [address], 2 15:30:50 Calcium with Vitamin D 600 mg-10 mcg (400 unit) tablet 2020 [facility], [address] [place] [address], [address], 1 16:37:31 estradio l-noreth indrone acet 1 mg-0.5 mg tablet 2020 [email or web address] [facility], [address] [place] [address], [address], 2 15:13:50 estradio l-noreth indrone acet 1 mg-0.5 mg tablet 2019 020 [email or web address] [facility], [address] [place] [address], [address], 2 15:13:50 [address] tablet [address] [facility], [address] [place] [address], [address], 2 15:30:50 Calcium with Vitamin D 600 mg-10 mcg (400 unit) tablet 2019 020 [facility], [address] [place] [address], [address], 0 16:50:44 Lopreeza 1 mg-0.5 mg tablet 2017 018 [email or web address] [facility] #01842, [address] [place], [place], [id number], 2 15:13:50 multivit belle tablet 2017 018 [facility] #97635, [address] [place], [place], [id number], 2 15:30:50 Calcium with Vitamin D 600 mg-10 mcg (400 unit) tablet 2017 018 [facility] #70047, [address] [place], [place], [id number], 0 16:19:32 Corvita 1.25 mg-2.5 mg-7 mg tablet 2015 016 [facility] #48172, [address] [place], [place], [id number], 0 16:21:14 TL G-Fol OS 500 mg-1.1 mg tablet 2015 016 [facility] #97123, [address], [place], [place], [id number], 0 16:20:39 Patient TargetsNo targets recorded. Patient Instructions Encounter Date Encounter Id Patient Instructions Last Modified By Organization Details Last Modified Time 03/12/2016 [id number] mammogram: about this test [email or web address] Not available 03/12/2016 17:59:33 12/25/2017 [id number] mammogram: about this test mwasserman Not available 12/25/2017 16:41:28 mammogram screening patient instructions mwasserman Not available 12/25/2017 16:41:27 12/07/2019 [id number] mammogram: about this test mwasserman Not available 12/07/2019 16:35:41 01/25/2021 [id number] mammogram: about this test mwasserman Not available 01/25/2021 16:39:45 mammogram screening patient instructions [email or web address] Not available 01/25/2021 16:39:45 learning about breast cancer screening mwasserman Not available 01/25/2021 16:39:45 03/27/2022 [id number] well visit, women 50 to 65: care instructions Not available 03/27/2022 15:45:30 learning about breast cancer screening Not available 03/27/2022 15:45:30 APOLINAR ArizmendiS Discussed with Gila Rosario PA-C Discussed with Dr. Michael lay Not available 03/29/2022 14:54:42 Reason for Referral Neurologist Referral for Mil d memory disturbance mild to moderate memory loss Referring Physician: Mino Reyes, SHELLAC POLISHER, Encounter Date: 12/25/2017 Results Created Date Observation Date Name Description Value Unit Range Abnormal Flag Note LastModifiedBy Organization Detail LastModifiedTime 01/26/20 22 01/25/2022 COLOG UARD cologuard result CANCEL LED - ORDER D not applic able Not Available [facility] (Cologuard Orders Only) [address], [place], [address], 01/25/2022 12:45:11 12/07/19 20 12/07/2019 urina lysis , dipst ick Leukocytes Negati ve Not Available In-Office Order Internal Use Only DO Not Attach Compendium DO Not Attach Compendium, Do Not Delete/merge, [id number] 12/07/2019 16:26:01 12/07/19 20 12/07/2019 urina lysis , dipst ick Nitrite negati ve Not Available In-Office Order Internal Use Only DO Not Attach Compendium DO Not Attach Compendium, Do Not Delete/merge, [id number] 12/07/2019 16:26:01 12/07/19 20 12/07/2019 urina lysis , dipst ick Urobilinogen .2 Not Available In-Of fice Order Internal Use Only DO Not Attach Compendium DO Not Attach Compendium, Do Not Delete/merge, 12/07/2019 16:26:01 12/07/19 20 12/07/2019 urina lysis , dipst ick Protein Negati ve Not Available In-Office Order Internal Use Only DO Not Attach Compendium DO Not Attach Compendium, Do Not Delete/merge, 12/07/2019 16:26:01 12/07/19 20 12/07/2019 urina lysis , dipst ick pH 5.5 Not Available In-Office Order Internal Use Only DO Not Attach Compendium DO Not Attach Compendium, Do Not Delete/merge, 12/07/2019 16:26:01 12/07/19 20 12/07/2019 urina lysis , dipst ick Blood Small Not Available In-Office Order Internal Use Only DO Not Attach Compendium DO Not Attach Compendium, Do Not Delete/merge, 12/07/2019 16:26:01 12/07/19 20 12/07/2019 urina lysis , dipst ick Specific [place] 1.025 Not Available In-Off ice Order Internal Use Only DO Not Attach Compendium DO Not Attach Compendium, Do Not Delete/merge, 12/07/2019 16:26:01 12/07/19 20 12/07/2019 urina lysis , dipst ick Ketone Negati ve Not Available In-Office Order Internal Use Only DO Not Attach Compendium DO Not Attach Compendium, Do Not Delete/merge, [facility] 12/07/2019 16:26:01 12/07/19 20 12/07/2019 urina lysis , dipst ick Bilirubin Negati ve Not Available In-Office Order Internal Use Only DO Not Attach Compendium DO Not Attach Compendium, Do Not Delete/merge, [facility] 12/07/2019 16:26:01 12/07/19 20 12/07/2019 urina lysis , dipst ick Glucose Negati ve Not Available In-Office Order Internal Use Only DO Not Attach Compendium DO Not Attach Compendium, Do Not Delete/merge, [facility] 12/07/2019 16:26:01 12/26/19 18 12/25/2017 urina lysis , dipst ick Leukocytes Negati ve Not Available In-Office Order Internal Use Only DO Not Attach Compendium DO Not Attach Compendium, Do Not Delete/merge, [facility] 12/25/2017 16:17:06 12/26/19 18 12/25/2017 urina lysis , dipst ick Nitrite negati ve Not Available In-Office Order Internal Use Only DO Not Attach Compendium DO Not Attach Compendium, Do Not Delete/merge, [facility] 12/25/2017 16:17:12/26/19 18 12/25/2017 urina lysis , dipst ick Urobilinogen .2 Not Available In-Of fice Order Internal Use Only DO Not Attach Compendium DO Not Attach Compendium, Do Not Delete/merge, [facility] 12/25/2017 16:17:06 12/26/19 18 12/25/2017 urina lysis , dipst ick Protein Negati ve Not Available In-Office Order Internal Use Only DO Not Attach Compendium DO Not Attach Compendium, Do Not Delete/merge, [facility] 12/25/2017 16:17:06 12/26/19 18 12/25/2017 urina lysis , dipst ick pH 7.0 Not Available In-Office Order Internal Use Only DO Not Attach Compendium DO Not Attach Compendium, Do Not Delete/merge, [facility] 12/25/2017 16:17:06 12/26/19 18 12/25/2017 urina lysis , dipst ick Blood Small Not Available In-Office Order Internal Use Only DO Not Attach Compendium DO Not Attach Compendium, Do Not Delete/merge, [id number] 12/25/2017 16:17:06 12/26/19 18 12/25/2017 urina lysis , dipst ick Specific [place] 1.020 Not Available In-Off ice Order Internal Use Only DO Not Attach Compendium DO Not Attach Compendium, Do Not Delete/merge, [facility] 12/25/2017 16:17:06 12/26/19 18 12/25/2017 urina lysis , dipst ick Ketone Negati ve Not Available In-Office Order Internal Use Only DO Not Attach Compendium DO Not Attach Compendium, Do Not Delete/merge, [facility] 12/25/2017 16:17:06 12/26/19 18 12/25/2017 urina lysis , dipst ick Bilirubin Negati ve Not Available In-Office Order Internal Use Only DO Not Attach Compendium DO Not Attach Compendium, Do Not Delete/merge, [facility] 12/25/2017 16:17:06 12/26/19 18 12/25/2017 urina lysis , dipst ick Glucose Negati ve Not Available In-Office Order Internal Use Only DO Not Attach Compendium DO Not Attach Compendium, Do Not Delete/merge, [facility] 12/25/2017 16:17:06 03/12/20 16 03/13/2016 lipid panel , serum cholesterol, total 172 mg/dL 100-19 9 Not Available [facility] ([facility]) [address] [facility], [place], [address], 03/13/2016 06:12:11 03/12/20 16 03/13/2016 lipid panel , serum triglyceride s 107 mg/dL 0-149 Not Available [facility] ([facility]) [address] [facility], [place], [address], 03/13/2016 06:12:11 03/12/20 16 03/13/2016 lipid panel , serum HDL cholesterol 63 mg/dL >39 Not Available [facility] ([facility]) [address] [facility], [place], [address], 03/13/2016 06:12:11 03/12/20 16 03/13/2016 lipid panel , serum VLDL cholesterol dmitry 21 mg/dL 5-40 Not Available [facility] ([facility]) [address] [place] [address], [address], 03/13/2016 06:12:11 03/12/20 16 03/13/2016 lipid panel , serum LDL cholesterol calc 88 mg/dL 0-99 Not Available [facility] ([facility]) [address] [place], [address], 03/13/2016 06:12:11 03/12/20 16 03/13/2016 lipid panel , serum comment: REST ROOM MATRON Not Available [facility] ([facility]) [address] [place], [address], 03/13/2016 06:12:11 03/12/20 16 03/13/2016 lipid panel , serum T. chol/HDL ratio 2.7 ratio _unit s 0.0-4. 4 T. CHOL/ HDL RATIO MEN WOMEN 1/2 AVG.R ISK 3.4 3.3 AVG.R ISK 5.0 4.4 2X AVG.R ISK 9.6 7.1 3X AVG.R ISK 23.4 11.0 Not Available [facility] ([facility]) [address] [place], [address], 03/13/2016 06:12:11 03/12/20 16 03/13/2016 HbA1c (hemo globi n A1c), blood hemoglobin A1C 5.6 % 4.8-5. 6 PRE-D IABET ES: 5.7 - 6.4 DIABE ADAM: >6.4 GLYCE NOHEMY CONTR OL FOR ADULT S WITH DIABE ADAM: <7.0 Not Available [facility] ([facility]) [address] [place], [address], 03/13/2016 06:12:12 03/12/20 16 03/13/2016 TSH, ultra -sens itive , serum TSH 1.650 uIU/m L 0.450- 4.500 Not Available [facility] ([facility]) [address] [place], [address], 03/13/2016 06:12:12 03/12/20 16 03/13/2016 lh (lute inizi ng hormo ne), serum LH 6.8 mIU/m L FOLLI CULAR PHASE 2.4 - 12.6 OVULA TION PHASE 14.0 - 95.6 LUTEA L PHASE 1.0 - 11.4 POSTM ENOPA USAL 7.7 - 58.5 Not Available [facility] ([facility]) [address] [place], [address], 03/13/2016 06:12:13 03/12/20 16 03/13/2016 FSH (foll icle- stimu latin g hormo ne), serum FSH 12.2 mIU/m L FOLLI CULAR PHASE 3.5 - 12.5 OVULA TION PHASE 4.7 - 21.5 LUTEA L PHASE 1.7 - 7.7 POSTM ENOPA USAL 25.8 - 134.8 Not Available [facility] ([facility]) [address] [place], [address], 03/13/2016 06:12:13 03/12/20 16 03/13/2016 prola ctin, serum prolactin 15.6 NG/mL 4.8-23 .3 Not Available [facility] ([facility]) [address] [place], [address], 03/13/2016 06:12:14 03/12/20 16 03/13/2016 estra diol, serum estradiol 39.3 pg/mL ADULT FEMAL E: FOLLI CULAR PHASE 12.5 - 166.0 OVULA TION PHASE 85.8 - 498.0 LUTEA L PHASE 43.8 - 211.0 POSTM ENOPA USAL <6.0 - 54.7 PREGN SHANI 1ST TRIME STER 215.0 - >4300 .0 GIRLS (1-10 YEARS ) 6.0 - 27.0 QI ECLIA METHO DOLOG Y Not Available [facility] ([facility]) [address] [facility], [place], [address], 03/13/2016 06:12:14 03/12/20 16 03/14/2016 pap, IG + HPV, cervi dmitry HPV aptima NEGATI VE negati ve THIS TEST DETEC TS FOURT EEN HIGH- RISK HPV TYPES (16/1 8/31/ 33/35 /39/4 5/ 51/52 /56/5 8/59/ 66/68 ) WITHO UT DIFFE RENTI ATION . Not Available [facility] ([facility]) [address] [facility], [place], [address], 03/15/2016 16:19:31 03/12/20 16 03/15/2016 pap, IG + HPV, cervi dmitry diagnosis: POPEYE TURNER FOR INTRA EPITH ELIAL YOLANDA Perez AND JENNIFER FONSECA . Not Available [facility] ([facility]) [address] [facility], [place], [address], 03/15/2016 16:19:31 03/12/20 16 03/15/2016 pap, IG + HPV, cervi dmitry specimen adequacy: POPEYE Shell SATIS FACTJaime HOSKINS FOR EVALU ATION . ENDOC ERVIC AL AND/O R SQUAM OUS METAP LASTI C CELLS (ENDO CERVI DMITRY COMPO NENT) ARE PRESE NT. Not Available [facility] ([facility]) [address] [facility], [place], [address], 03/15/2016 16:19:31 03/12/20 16 03/15/2016 pap, IG + HPV, cervi dmitry clinician provided ICD10: POPEYE Shell Z01.4 19 Not Available [facility] ([facility]) [address] [place], [address], 03/15/2016 16:19:31 03/12/20 16 03/15/2016 pap, IG + HPV, cervi dmitry performed by: POPEYE BOWERS CYTOT ECHNO LOGIS T (ASCP ) Not Available [facility] ([facility]) [address] [facility], [place], [address], 03/15/2016 16:19:31 03/12/20 16 03/15/2016 pap, IG + HPV, cervi dmitry . . Not Available [facility] ([facility]) [address] [facility], [place], [address], 03/15/2016 16:19:31 03/12/20 16 03/15/2016 pap, IG + HPV, cervi dmitry note: COMMEN T THE PAP SMEAR IS A SCREE TRACEY TEST DESIG EVANGELIST TO AID IN THE DETEC TION OF PARTH LIGNA NT AND MALIG NANT CONDI TIONS OF THE UTERI NE CERVI X. IT IS NOT A DIAGN OSTIC PROCE DURE AND SHOUL D NOT BE USED THE SOLE MEANS OF DETEC TING CERVI DMITRY CANCE R. BOTH FALSE -POSI TIVE AND FALSE -NEGA TIVE REPOR TS DO OCCUR . Not Available [facility] ([facility]) [address] [facility], [place], [address], 03/15/2016 16:19:31 03/12/20 16 03/15/2016 pap, IG + HPV, cervi dmitry test methodology: COMMEN T THIS LIQUI D BASED THINP REP(R ) PAP TEST WAS SCREE EVANGELIST WITH THE USE OF AN IMAGE GUIDE Alyssa SYSTRandee M. Not Available [facility] ([facility]) [address] [facility], [place], [address], 03/15/2016 16:19:31 12/26/19 18 12/26/2017 CBC w/ auto diff WBC 11.0 x10e3 /uL 3.4-10 .8 above high normal Not Available [facility] ([facility]) [address] [facility], [place], [address], 12/26/2017 08:30:48 12/26/19 18 12/26/2017 CBC w/ auto diff RBC 4.28 x10e6 /uL 3.77-5 .28 Not Available [facility] ([facility]) [address] [facility], [place], [address], 12/26/2017 08:30:48 12/26/19 18 12/26/2017 CBC w/ auto diff hemoglobin 12.2 g/dL 11.1-1 5.9 Not Available [facility] ([facility]) [address] [facility], [place], [address], 12/26/2017 08:30:48 12/26/19 18 12/26/2017 CBC w/ auto diff hematocrit 37.5 % 34.0-4 6.6 Not Available [facility] ([facility]) [address] [facility], [place], [address], 12/26/2017 08:30:48 12/26/19 18 12/26/2017 CBC w/ auto diff MCV 88 fL 79-97 Not Available [facility] ([facility]) [address] [facility], [place], [address], 12/26/2017 08:30:48 12/26/19 18 12/26/2017 CBC w/ auto diff MCH 28.5 pg 26.6-3 3.0 Not Available [facility] ([facility]) [address] [facility], [place], [address], 12/26/2017 08:30:48 12/26/19 18 12/26/2017 CBC w/ auto diff MCHC 32.5 g/dL 31.5-3 5.7 Not Available [facility] ([facility]) [address] [facility], [place], [address], 12/26/2017 08:30:48 12/26/19 18 12/26/2017 CBC w/ auto diff RDW 13.3 % 12.3-1 5.4 Not Available [facility] ([facility]) [address] [facility], [place], [address], 12/26/2017 08:30:48 12/26/19 18 12/26/2017 CBC w/ auto diff platelets 347 x10e3 /uL 150-37 9 Not Available [facility] ([facility]) [address] [facility] [place], [address], 12/26/2017 08:30:48 12/26/19 18 12/26/2017 CBC w/ auto diff neutrophils 60 % not estab. Not Available [facility] ([facility]) [address] [facility] [place], [address], 12/26/2017 08:30:48 12/26/19 18 12/26/2017 CBC w/ auto diff lymphs 28 % not estab. Not Available [facility] ([facility]) [address] [facility] [place], [address], 12/26/2017 08:30:48 12/26/19 18 12/26/2017 CBC w/ auto diff monocytes 8 % not estab. Not Available [facility] ([facility]) [address] [place], [address], 12/26/2017 08:30:48 12/26/19 18 12/26/2017 CBC w/ auto diff eos 2 % not estab. Not Available [facility] ([facility]) [address] [facility], [place], [address], 12/26/2017 08:30:48 12/26/19 18 12/26/2017 CBC w/ auto diff basos 1 % not estab. Not Available [facility] ([facility]) [address] [place], [address], 12/26/2017 08:30:48 12/26/19 18 12/26/2017 CBC w/ auto diff immature cells REST ROOM MATRON Not Available [facility] ([facility]) [address] [place], [address], 12/26/2017 08:30:48 12/26/19 18 12/26/2017 CBC w/ auto diff neutrophils (absolute) 6.8 x10e3 /uL 1.4-7. 0 Not Available [facility] ([facility]) [address] [facility], [place], [address], 12/26/2017 08:30:48 12/26/19 18 12/26/2017 CBC w/ auto diff lymphs (absolute) 3.0 x10e3 /uL 0.7-3. 1 Not Available [facility] ([facility]) [address] [facility], [place], [address], 12/26/2017 08:30:48 12/26/19 18 12/26/2017 CBC w/ auto diff monocytes(ab solute) 0.8 x10e3 /uL 0.1-0. 9 Not Available [facility] ([facility]) [address] [facility], [place], [address], 12/26/2017 08:30:48 12/26/19 18 12/26/2017 CBC w/ auto diff eos (absolute) 0.2 x10e3 /uL 0.0-0. 4 Not Available [facility] ([facility]) [address] [facility], [place], [address], 12/26/2017 08:30:48 12/26/19 18 12/26/2017 CBC w/ auto diff baso (absolute) 0.1 x10e3 /uL 0.0-0. 2 Not Available [facility] ([facility] [facility] [address] [facility], [place], [address], 12/26/2017 08:30:48 12/26/19 18 12/26/2017 CBC w/ auto diff immature granulocytes 1 % not estab. Not Available [facility] ([facility]) [address] [facility], [place], [address], 12/26/2017 08:30:48 12/26/19 18 12/26/2017 CBC w/ auto diff immature grans (abs) 0.1 x10e3 /uL 0.0-0. 1 Not Available [facility] ([facility]) [address] [facility], [place], [address], 12/26/2017 08:30:48 12/26/19 18 12/26/2017 CBC w/ auto diff NRBC REST ROOM MATRON Not Available [facility] ([facility]) [address] [place] [address] [place], [address], 12/26/2017 08:30:48 12/26/19 18 12/26/2017 CBC w/ auto diff hematology comments: REST ROOM MATRON Not Available [facility] ([facility]) [address] [place] [address] [place], [address], 12/26/2017 08:30:48 12/26/19 18 12/26/2017 CMP, serum or plasm a glucose 86 mg/dL 65-99 Not Available [facility] ([facility]) [address] [place] [address] [place], [address], 12/26/2017 08:30:49 12/26/19 18 12/26/2017 CMP, serum or plasm a BUN 15 mg/dL 6-24 Not Available [facility] ([facility]) [address] [place] [address] [place], [address], 12/26/2017 08:30:49 12/26/19 18 12/26/2017 CMP, serum or plasm a creatinine 0.97 mg/dL 0.57-1 .00 Not Available [facility] ([facility]) [address] [facility] [place], [address], 12/26/2017 08:30:49 12/26/19 18 12/26/2017 CMP, serum or plasm a eGFR if nonafricn AM 65 mL/mi n/1.7 3 >59 Not Available [facility] ([facility]) [address] [facility] [place], [address], 12/26/2017 08:30:49 12/26/19 18 12/26/2017 CMP, serum or plasm a eGFR if africn AM 76 mL/mi n/1.7 3 >59 Not Available [facility] ([facility]) [address] [facility] [place], [address], 12/26/2017 08:30:49 12/26/19 18 12/26/2017 CMP, serum or plasm a BUN/creatini ne ratio 15 9-23 Not Available [facility] ([facility]) [address] [facility] [place], [address], 12/26/2017 08:30:49 12/26/19 18 12/26/2017 CMP, serum or plasm a sodium 144 mmol/ L 134-14 4 Not Available [facility] ([facility]) [address] [facility] [place], [address], 12/26/2017 08:30:49 12/26/19 18 12/26/2017 CMP, serum or plasm a potassium 4.7 mmol/ L 3.5-5. 2 Not Available [facility] ([facility]) [address] [facility] [place], [address], 12/26/2017 08:30:49 12/26/19 18 12/26/2017 CMP, serum or plasm a chloride 106 mmol/ L 96-106 Not Available [facility] ([facility]) [address] [facility] [place], [address], 12/26/2017 08:30:49 12/26/19 18 12/26/2017 CMP, serum or plasm a carbon dioxide, total 21 mmol/ L 20-29 Not Available [facility] ([facility]) [address] [facility] [place], [address], 12/26/2017 08:30:49 12/26/19 18 12/26/2017 CMP, serum or plasm a calcium 9.4 mg/dL 8.7-10 .2 Not Available [facility] ([facility]) [address] [facility] [place], [address], 12/26/2017 08:30:49 12/26/19 18 12/26/2017 CMP, serum or plasm a protein, total 6.6 g/dL 6.0-8. 5 Not Available [facility] ([facility] [address] [facility] [place], [address], 12/26/2017 08:30:49 12/26/19 18 12/26/2017 CMP, serum or plasm a albumin 4.2 g/dL 3.5-5. 5 Not Available [facility] ([facility] [address] [facility] [place], [address], 12/26/2017 08:30:49 12/26/1912/26/2017 CMP, serum or plasm a globulin, total 2.4 g/dL 1.5-4. 5 Not Available [facility] ([facility] [address] [facility] [place], [address], 12/26/2017 08:30:49 12/26/1912/26/2017 CMP, serum or plasm a A/G ratio 1.8 1.2-2. 2 Not Available [facility] ([facility]) [address] [facility] [place], [address], 12/26/2017 08:30:49 12/26/1912/26/2017 CMP, serum or plasm a bilirubin, total 0.2 mg/dL 0.0-1. 2 Not Available [facility] ([facility] [address] [facility] [place], [address], 12/26/2017 08:30:49 12/26/1912/26/2017 CMP, serum or plasm a alkaline phosphatase 67 IU/L 39-117 Not Available [facility] ([facility]) [address] [facility] [place], [address], 12/26/2017 08:30:49 12/26/1912/26/2017 CMP, serum or plasm a AST (SGOT) 23 IU/L 0-40 Not Available [facility] ([facility]) [address] [facility] [place], [address], 12/26/2017 08:30:49 12/26/1912/26/2017 CMP, serum or plasm a ALT (SGPT) 19 IU/L 0-32 Not Available [facility] ([facility]) [address] [facility], [place], [address], 12/26/2017 08:30:49 12/26/19 18 12/26/2017 lipid panel , serum cholesterol, total 165 mg/dL 100-19 9 Not Available [facility] ([facility]) [address] [facility], [place], [address], 12/26/2017 08:30:50 12/26/19 18 12/26/2017 lipid panel , serum triglyceride s 97 mg/dL 0-149 Not Available [facility] ([facility]) [address] [facility], [place], [address], 12/26/2017 08:30:50 12/26/19 18 12/26/2017 lipid panel , serum HDL cholesterol 66 mg/dL >39 Not Available [facility] ([facility]) [address] [facility], [place], [address], 12/26/2017 08:30:50 12/26/19 18 12/26/2017 lipid panel , serum VLDL cholesterol dmitry 19 mg/dL 5-40 Not Available [facility] ([facility]) [address] [facility], [place], [address], 12/26/2017 08:30:50 12/26/19 18 12/26/2017 lipid panel , serum LDL cholesterol calc 80 mg/dL 0-99 Not Available [facility] ([facility]) [address] [facility], [place], [address], 12/26/2017 08:30:50 12/26/19 18 12/26/2017 lipid panel , serum comment: REST ROOM MATRON Not Available [facility] ([facility]) [address] [facility], [place], [address], 12/26/2017 08:30:50 12/26/19 18 12/26/2017 lipid panel , serum LDL/HDL ratio 1.2 ratio 0.0-3. 2 LDL/H DL Ratio Men Women 1/2 Avg.R isk 1.0 1.5 Avg.R isk 3.6 3.2 2X Avg.R isk 6.2 5.0 3X Avg.R isk 8.0 6.1 Not Available [facility] ([facility]) [address] [place], [address], 12/26/2017 08:30:50 12/26/19 18 12/26/2017 vitam in B12 + folat e, serum or blood vitamin B12 1661 pg/mL 232-12 45 above high normal Not Available [facility] ([facility]) [address] [place], [address], 12/26/2017 08:30:51 12/26/1912/26/2017 vitam in B12 + folat e, serum or blood folate (folic acid), serum >20.0 NG/mL >3.0 A serum folat e lynn ntrat ion of less than 3.1 ng/mL is consi dered to repre sent clini dmitry defic iency . Not Available [facility] ([facility]) [address] [place], [address], 12/26/2017 08:30:51 12/26/19 18 12/26/2017 lh + FSH, serum LH 4.7 mIU/m L Adult Femal e: Folli cular phase 2.4 - 12.6 Ovula tion phase 14.0 - 95.6 Lutea l phase 1.0 - 11.4 Postm enopa usal 7.7 - 58.5 Not Available [facility] ([facility]) [address] [place], [address], 12/26/2017 08:30:51 12/26/1912/26/2017 lh + FSH, serum FSH 4.6 mIU/m L Adult Femal e: Folli cular phase 3.5 - 12.5 Ovula tion phase 4.7 - 21.5 Lutea l phase 1.7 - 7.7 Postm enopa usal 25.8 - 134.8 Not Available [facility] ([facility]) [address] [place], [address], 12/26/2017 08:30:51 12/26/19 18 12/26/2017 HbA1c (hemo globi n A1c), blood hemoglobin A1C 5.4 % 4.8-5. 6 Predi abete s: 5.7 - 6.4 Diabe adam: >6.4 Glyce nohemy contr ol for adult s with diabe adam: <7.0 Not Available [facility] ([facility]) [address] [place], [address], 12/26/2017 08:30:52 12/26/19 18 12/26/2017 dhea- sulfa te, serum DHEA-sulfate 43.9 ug/dL 29.4-2 20.5 Not Available [facility] ([facility]) [address] [place], [address], 12/26/2017 08:30:53 12/26/19 18 12/26/2017 testo stero ne, total , serum testosterone , serum 9 NG/dL 3-41 Not Available [facility] ([facility]) [address] [place], [address], 12/26/2017 08:30:54 12/26/19 18 12/26/2017 TSH, ultra -sens itive , serum TSH 1.680 uIU/m L 0.450- 4.500 Not Available [facility] ([facility]) [address] [place], [address], 12/26/2017 08:30:55 12/26/19 18 12/26/2017 estra diol, serum estradiol 350.1 pg/mL Adult Femal e: Folli cular phase 12.5 - 166.0 Ovula tion phase 85.8 - 498.0 Lutea l phase 43.8 - 211.0 Postm enopa usal <6.0 - 54.7 Pregn shani 1st trime ster 215.0 - >4300 .0 Girls (1-10 years ) 6.0 - 27.0 Qi ECLIA metho dolog y Not Available [facility] ([facility]) [address] [facility], [place], [address], 12/26/2017 08:30:56 12/26/19 18 12/26/2017 vitam in D, 25-hy droxy , total , serum vitamin D, 25-hydroxy 57.3 NG/mL 30.0-1 00.0 Vitam in D defic iency has been defin ed by the Insti tute of Medic ine and an Endoc rine Socie ty pract ice guide line as a level of serum 25-OH vitam in D less than 20 ng/mL (1,2) . The Endoc rine Socie ty went on to furth er defin e vitam in D insuf ficie ncy as a level betwe en 21 and 29 ng/mL (2). 1. IOM (Inst itute of Medic ine). 2009. Dieta ry refer ence intak es for calci um and D. Rohini lui DC: The [facility] Press . 2. Shanon thompson MF, Leelee cevallos [place], Nydia off-F errar i RAY, et al. Evalu ation , treat ment, and preve ntion of vitam in D defic iency : an Endoc rine Socie ty clini dmitry pract ice guide line. EM. 2010; 96(7) :1911 -30. Not Available [facility] ([facility]) [address] [facility], [place], [address], 12/26/2017 08:30:56 12/26/19 18 12/31/2017 pap, IG + HPV, cervi dmitry HPV aptima NEGATI VE negati ve This test detec ts fourt een high- risk HPV types (16/1 8/31/ 33/35 /39/4 5/ 51/52 /56/5 8/59/ 66/68 ) witho ut diffe renti ation . 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 ATYPI DMITRY SQUAM OUS CELLS OF UNDET ERMIN ED SIGNI LORELEI CE. Not Available [facility] ([facility]) [address] [facility], [place], [address], 01/01/2018 10:36:52 12/26/19 18 01/01/2018 pap, IG + HPV, cervi dmitry recommendati on: POPEYE Shell abnormal Sugge st follo w up as clini amelia appro priat e. Not Available [facility] ([facility]) [address] [facility], [place], [address], 01/01/2018 10:36:52 12/26/19 18 01/01/2018 pap, IG + HPV, cervi dmitry specimen adequacy: POPEYE Shell Satis facto ry for evalu ation . Endoc ervic al and/o r squam ous metap lasti c cells (endo cervi dmitry compo nent) are prese nt. Not Available [facility] ([facility]) [address] [facility], [place], [address], 01/01/2018 10:36:52 12/26/19 18 01/01/2018 pap, IG + HPV, cervi dmitry clinician provided ICD10: POPEYE Shell Z01.4 19 N95.9 E28.2 R41.3 Not Available [facility] ([facility]) [address] [facility], [place], [address], 01/01/2018 10:36:52 12/26/19 18 01/01/2018 pap, IG + HPV, cervi dmitry performed by: POPEYE Cole, Cytot olga shell (ASCP ) Not Available [facility] ([facility]) [address] [place], [address], 01/01/2018 10:36:52 12/26/19 18 01/01/2018 pap, IG + HPV, cervi dmitry electronical ly signed by: POPEYE Washington MD, Patho patricia t Not Available [facility] ([facility]) [address] [place], [address], 01/01/2018 10:36:52 12/26/19 18 01/01/2018 pap, IG + HPV, cervi dmitry . . Not Available [facility] ([facility]) [address] [place], [address], 01/01/2018 10:36:52 12/26/19 18 01/01/2018 pap, IG + HPV, cervi dmitry pathologist provided ICD10: POPEYE Shell R87.6 10 Not Available [facility] ([facility]) [address] [facility], [place], [address], 01/01/2018 10:36:52 12/26/19 18 01/01/2018 pap, IG + HPV, cervi dmitry note: POPEYE Shell The Pap smear is a scree tracey test desig evangelist to aid in the detec tion of parth ligna nt and malig nant condi tions of the uteri ne cervi x. It is not a diagn ostic proce dure and shoul d not be used as the sole means of detec ting cervi dmitry cance r. Both false -posi tive and false -nega tive repor ts do occur . Not Available [facility] ([facility]) [address] [facility], [place], [address], 01/01/2018 10:36:52 12/26/19 18 01/01/2018 pap, IG + HPV, cervi dmitry test methodology: POPEYE Shell This liqui d based ThinP rep(R ) pap test was scree evangelist with the use of an image guide alyssa lomas. Not Available [facility] ([facility]) [address] [place], [address], 01/01/2018 10:36:52 12/07/19 20 12/09/2019 pap, IG + HPV, cervi dmitry HPV aptima Negati ve negati ve This nucle ic acid ampli ficat ion test detec ts fourt een high- risk HPV types (16,1 8,31, 33,35 ,39,4 5,51, 52,56 ,58,5 9,66, 68) witho ut diffe renti ation . Not Available [facility] ([facility]) [address] [facility], [place], [address], 12/10/2019 14:10:41 12/07/19 20 12/10/2019 pap, IG + HPV, cervi dmitry diagnosis: Commen t UNSAT ISFAC TORY FOR EVALU ATION . Not Available [facility] ([facility]) [address] [facility], [place], [address], 12/10/2019 14:10:41 12/07/19 20 12/10/2019 pap, IG + HPV, cervi dmitry recommendati on: Commen t Sugge st follo w up as clini amelia appro priat e. Not Available [facility] ([facility]) [address] [facility], [place], [address], 12/10/2019 14:10:41 12/07/19 20 12/10/2019 pap, IG + HPV, cervi dmitry specimen adequacy: Commen t Speci men proce ssed and exami evangelist but unsat isfac tory for evalu ation of epith elial abnor malit y becau se of insuf ficie nt cellu larit y. Not Available [facility] ([facility]) [address] [facility], [place], [address], 12/10/2019 14:10:41 12/07/19 20 12/10/2019 pap, IG + HPV, cervi dmitry clinician provided ICD10: Popeye shell Z20.2 Z01.4 19 Not Available [facility] ([facility]) [address] [facility], [place], [address], 12/10/2019 14:10:41 12/07/19 20 12/10/2019 pap, IG + HPV, cervi dmitry maturation index: Popeye shell Not Available [facility] ([facility]) [address] [place], [address], 12/10/2019 14:10:41 12/07/19 20 12/10/2019 pap, IG + HPV, cervi dmitry performed by: Popeye lagos, Cytot echno logis t (ASCP ) Not Available [facility] ([facility]) [address] [facility], [place], [address], 12/10/2019 14:10:41 12/07/19 20 12/10/2019 pap, IG + HPV, cervi dmitry QC reviewed by: Popeye Mckeon , Super visor y Cytot echno logis t (ASCP ) Not Available [facility] ([facility]) [address] [facility], [place], [address], 12/10/2019 14:10:41 12/07/19 20 12/10/2019 pap, IG + HPV, cervi dmitry . . Not Available [facility] ([facility]) [address] [place], [address], 12/10/2019 14:10:41 12/07/19 20 12/10/2019 pap, IG + HPV, cervi dmitry note: Popeye shell The Pap smear is a scree tracey test desig evangelist to aid in the detec tion of parth ligna nt and malig nant condi tions of the uteri ne cervi x. It is not a diagn ostic proce dure and shoul d not be used as the sole means of detec ting cervi dmitry cance r. Both false -posi tive and false -nega tive repor ts do occur . Not Available [facility] ([facility]) [address] [place], [address], 12/10/2019 14:10:41 12/07/19 20 12/10/2019 pap, IG + HPV, cervi dmitry test methodology: TNP The Thin Prep( R) Image r was unabl e to read this speci men. There fore a raymundo brady w was perfo rmed. Not Available [facility] ([facility]) [address] [place], [address], 12/10/2019 14:10:41 12/07/19 20 12/09/2019 bacte rial vagin osis panel , vagin al chlamydia trachomatis, BHARTI Negati ve negati ve Not Available [facility] ([facility]) [address] [place], [address], 12/11/2019 08:15:44 12/07/19 20 12/09/2019 bacte rial vagin osis panel , vagin al neisseria gonorrhoeae, BHARTI Negati ve negati ve Not Available [facility] ([facility]) [address] [place], [address], 12/11/2019 08:15:44 12/07/19 20 12/09/2019 bacte rial vagin osis panel , vagin al hsv 1 BHARTI Negati ve negati ve Not Available [facility] ([facility]) [address] [place], [address], 12/11/2019 08:15:44 12/07/19 20 12/09/2019 bacte rial vagin osis panel , vagin al hsv 2 BHARTI Negati ve negati ve Not Available [facility] ([facility]) [address] [place], [address], 12/11/2019 08:15:44 12/07/19 20 12/10/2019 bacte rial vagin osis panel , vagin al trich vag by BHARTI Negati ve negati ve Not Available [facility] ([facility]) [address] [place], [address], 12/11/2019 08:15:44 12/07/19 20 12/11/2019 bacte rial vagin osis panel , vagin al atopobium vaginae Low - 0 score Not Available [facility] ([facility]) [address] [place], [address], 12/11/2019 08:15:44 12/07/19 20 12/11/2019 bacte rial vagin osis panel , vagin al bvab 2 Low - 0 score Not Available [facility] ([facility]) [address] [place], [address], 12/11/2019 08:15:44 12/07/19 20 12/11/2019 bacte rial vagin osis panel , vagin al megasphaera 1 Low - 0 score Calcu late total score by ken caal the 3 indiv idual bacte rial vagin osis (BV) marke r score s toget her. Total score is inter prete d as follo ws: Total score 0-1: Indic ates the absen ce of BV. Total score 2: Indet ermin ate for BV. Addit ional clini dmitry data shoul d be evalu ated to estab ilya a diagn osis. Total score 3-6: Indic ates the prese nce of BV. This test was devel oped and its perfo rmanc e panchito cteri stics deter mined by [facility]. It has not been clear ed or appro palak by the Food and Drug Admin istra tion. The FDA has deter mined that such clear ance or appro neida is not neces salbador. Not Available [facility] ([facility]) [address] [facility], [place], [address], 12/11/2019 08:15:44 12/07/19 20 12/11/2019 bacte rial vagin osis panel , vagin al magdiel albicans, BHARTI Negati ve negati ve Not Available [facility] ([facility]) [address] [facility], [place], [address], 12/11/2019 08:15:44 12/07/19 20 12/11/2019 bacte rial vagin osis panel , vagin al magdiel glabrata, BHARTI Negati ve negati ve Not Available [facility] ([facility]) [address] [facility], [place], [address], 12/11/2019 08:15:44 12/07/19 20 12/09/2019 cultu re, vagin al/re ctal, strep tococ cus group B strep gp B BHARTI Negati ve negati ve [facility] Disea se Contr ol and Preve ntion ([facility]) and Ameri can Congr ess of Obste trici ans and Gynec ologi sts ([facility] ) guide lines for preve ntion of perin atal group B strep tococ dmtiry (GBS) disea se speci fy co-co llect ion of a vagin al and recta l swab speci men to maxim ize sensi tivit y of GBS detec tion. Per the [facility] and [facility], swabb ing both the lower vagin a and rectu m subst antia lly incre ases the yield of detec tion enmanuel red with sampl ing the vagin a alone . Penic illin G, ampic illin , or cefaz shira are indic ated for intra partu m proph ylaxi s of perin atal GBS colon izati on. Refle x susce ptibi lity testi ng shoul d be perfo rmed prior to use of clind amyci n only on GBS isola adam from penic illin -skye rgic women who are consi dered a high risk for anaph ylaxi s. Treat ment with vanco mycin witho ut addit ional testi ng is warra nted if resis tance to clind amyci n is noted . Not Available [facility] ([facility]) [address] [facility], [place], [address], 12/11/2019 08:15:44 03/27/20 22 03/27/2022 IGP,A PTIMA HPV,A GE GDLN age gdln acog testing 30-65 Not Available [facility] ([facility]) [address] [facility], [place], [address], 04/04/2022 16:11:23 03/27/20 22 03/28/2022 IGP, APTIM A HPV, RFX 16/18 ,45 HPV aptima Negati ve negati ve This nucle ic acid ampli ficat ion test detec ts fourt een high- risk HPV types (16,1 8,31, 33,35 ,39,4 5,51, 52,56 ,58,5 9,66, 68) witho ut diffe renti ation . Not Available [facility] ([facility]) [address] [facility], [place], [address], 04/04/2022 16:11:24 03/27/20 22 04/04/2022 IGP, APTIM A HPV, RFX 16/18 ,45 diagnosis: Commen t NEGAT YUE FOR INTRA EPITH ELIAL LESIO N OR MALIG MARIAN . THIS SPECI MEN WAS RESCR EENED PART OF OUR QUALI TY CONTR OL PROGR AM. Not Available [facility] ([facility]) [address] [place], [address], 04/04/2022 16:11:24 03/27/20 22 04/04/2022 IGP, APTIM A HPV, RFX 16/18 ,45 specimen adequacy: Commen t Satis facto ry for evalu ation . Endoc ervic al and/o r squam ous metap lasti c cells (endo cervi dmitry compo nent) are prese nt. Not Available [facility] ([facility]) [address] [facility], [place], [address], 04/04/2022 16:11:24 03/27/20 22 04/04/2022 IGP, APTIM A HPV, RFX 16/18 ,45 clinician provided ICD10: Commen t Z01.4 19 Not Available [facility] ([facility]) [address] [facility], [place], [address], 04/04/2022 16:11:24 03/27/20 22 04/04/2022 IGP, APTIM A HPV, RFX 16/18 ,45 performed by: Popeye Quiroz ws, Cytot echno logis t (ASCP ) Not Available [facility] ([facility]) [address] [facility], [place], [address], 04/04/2022 16:11:24 03/27/20 22 04/04/2022 IGP, APTIM A HPV, RFX 16/18 ,45 QC reviewed by: Popeye Bansal n, Super visor y Cytot echno logis t (ASCP ) Not Available [facility] ([facility]) [address] [place], [address], 04/04/2022 16:11:24 03/27/20 22 04/04/2022 IGP, APTIM A HPV, RFX 16/18 ,45 . . Not Available [facility] ([facility]) [address] [facility], [place], [address], 04/04/2022 16:11:24 03/27/20 22 04/04/2022 IGP, APTIM A HPV, RFX 16/18 ,45 note: Popeye shell The Pap smear is a scree tracey test desig evangelist to aid in the detec tion of parth ligna nt and malig nant condi tions of the uteri ne cervi x. It is not a diagn ostic proce dure and shoul d not be used as the sole means of detec ting cervi dmitry cance r. Both false -posi tive and false -nega tive repor ts do occur . Not Available [facility] ([facility]) [address] [facility], [place], [address], 04/04/2022 16:11:24 03/27/20 22 04/04/2022 IGP, APTIM A HPV, RFX 16/18 ,45 test methodology: Popeye shell This liqui d based ThinP rep(R ) pap test was scree evangelist with the use of an image guide alyssa systrandee lomas. Not Available [facility] ([facility]) [address] [facility], [place], [address], 04/04/2022 16:11:24 03/27/20 22 04/04/2022 IGP, APTIM A HPV, RFX 16/18 ,45 HPV genotype reflex Commen t Crite ramiro not met, HPV Genot ype not perfo rmed. Not Available [facility] ([facility]) [address] [facility], [place], [address], 04/04/2022 16:11:24 03/08/20 16 01/17/2014 MAMMO , diagn ostic , digit al, unila teral No observ ation record ed. [email or web address] Not Available 2015 11:29:33 03/08/20 16 10/22/2013 US, steveas t No observ ation record ed. [email or web address] Not Available 2015 11:30:09 03/08/20 16 10/22/2013 MAMMO , scree tracey, digit al, bilat eral No observ ation record ed. [email or web address] Not Available 2015 11:30:43 03/08/20 16 11/07/2011 MAMMO , scree tracey, digit al, bilat eral No observ ation record ed. [email or web address] Not Available 2015 11:31:18 03/08/20 16 11/07/2011 MAMMO , scree tracey, digit al, bilat eral No observ ation record ed. [email or web address] Not Available 2015 11:31:48 03/08/20 16 12/20/2008 DEXA No observ ation record ed. [email or web address] Not Available 2015 11:32:26 01/13/20 20 01/13/2020 MAMMO , scree tracey, bilat eral No observ ation record ed. [facility] ([facility]) [address] [place], [address], 01/17/2020 08:03:32 02/27/20 21 02/26/2021 DEXA, axial skele ton No observ ation record ed. [email or web address] [place], [address], 03/27/2022 15:43:16 02/28/20 21 02/26/2021 MAMMO , scree tracey, bilat eral No observ ation record ed. [email or web address] [place], [address], 03/27/2022 15:43:16 05/07/19 23 05/07/2022 US, pelvi s, trans abdom inal + trans vagin al No observ ation record ed. [facility] [address] [place], [address], 06/07/2022 14:45:10 05/07/19 23 05/07/2022 MAMMO , scree tracey, bilat eral No observ ation record ed. [facility] [address] [place], [address], 06/07/2022 14:45:40 Result Notes None recorded. Problems Name Problem SNOMED Code Status Onset Date Resolution Date Notes Provider Name and Address Organization Details Recorded Time Headache 66509868 Active Mino garcia, MA - [facility] 5 16:32:31 Recurrent urinary tract infection 891072014 Active Mino garcia, MA - [facility] 16:32:31 Menopause Active 020 Mino garcia, [place] - [facility] 0 16:50:07 Problem Notes None recorded. Procedures Surgical History Date Name Laterality Status Provider Name and Address Organization Details Recorded Time 2 Date of Last Pap Smear completed LUIS CARLOS [facility] 03/27/2022 15:17:14 1 Date of Last Mammogram completed LUIS CARLOS [facility] 03/27/2022 15:27:34 0 Most Recent Mammogram completed LUIS CARLOS [facility] 01/25/2021 16:19:58 1 Tubal Ligation completed Eduarda Hercules MA [facility] 02/14/2015 16:03:03 9 Breast Implants completed Eduarda LUIS CARLOS Hercules [facility] 02/14/2015 16:03:03 Imaging Results None recorded. Procedure Notes None recorded. Medical Equipment None Reported. Allergies Allergen ID Allergen Name Allergen Category Reaction Reaction Severity Criticality Documentation Date Start Date Code Code System Note Provider Name and Address Organization Details Recorded Time 89443 codeine medicatio n vomiting severe Not available 02/14/2015 2670 RxNorm Eduarda Hercules MA null, [facility] 5 15:58:40 Medications Name Sig Start Date Stop Date Status Note LastModified by Organization Details LastModified Time Prescriptio n - Clarificati on 12/06 completed Not Available Not Available Not Available multivitami n tablet TAKE 1 TABLET BY MOUTH EVERY DAY 03/27 completed Not Available Not Available Not Available sumatriptan 100 mg tablet TAKE 1 TABLET BY MOUTH AT ONSET OF HEADACHE. MAY REPEAT 1 TIME IN 2 HOURS NEEDED. MAX 2 TABLETS PER DAY 12/06 completed Not Available Not Available Not Available hydrocodone 5 mg-acetamin ophen 325 mg tablet 12/06 completed Not Available Not Available Not Available ondansetron HCl 8 mg tablet 12/06 completed Not Available Not Available Not Available meloxicam 15 mg tablet 12/06 completed Not Available Not Available Not Available estradiol-n orethindron e acet 1 mg-0.5 mg tablet TAKE 1 TABLET DAILY 03/28 completed Not Available Not Available Not Available oxycodone-a cetaminophe n 5 mg-325 mg tablet 12/06 completed Not Available Not Available Not Available tobramycin 0.3 % eye drops 12/06 completed Not Available Not Available Not Available mupirocin 2 % topical ointment 12/06 completed Not Available Not Available Not Available nitrofurant oin monohydrate /macrocryst als 100 mg capsule Take 1 capsule every 12 hours by oral route for 10 days. 12/06 completed Not Available Not Available Not Available Corvita 1.25 mg-2.5 mg-7 mg tablet TAKE 1 TABLET BY MOUTH EVERY DAY 12/06 completed Not Available Not Available Not Available estradiol-n orethindron e acet 0.5 mg-0.1 mg tablet Take 1 tablet every day by oral route. 2021 active Not Available Not Available Not Avai lable Calcium with Vitamin D 600 mg-10 mcg (400 unit) tablet Take 1 tablet(s) twice a day by oral route. active Not Available Not Available No t Available TL G-Fol OS 500 mg-1.1 mg tablet TAKE 2 TABLETS BY MOUTH EVERY DAY 12/06 completed Not Available Not Available Not Available Tab-A-Yesi 400 mcg tablet active Not Available Not Available Not Available Paxlovid 300 mg (150 mg x 2)-100 mg tablets in a dose pack FOLLOW PACKAGE DIRECTION S active Not Available Not Available No t Available Vitals Date Recorded Body height Body mass index (BMI) Body weight Systolic And Diastolic Provider Name and Address Organization Details Last Updated DateTime 12/07/2019 165.1 cm 23 kg/m2 97063.75 g 104/70 mm[Hg] Radha Wolf [facility] 12/07/2019 16:28:24 Date Recorded Body height Body mass index (BMI) Body weight Systolic And Diastolic Provider Name and Address Organization Details Last Updated DateTime 12/25/2017 162.56 cm 24.7 kg/m2 11377.3 g 126/72 mm[Hg] Nicolle Aguayo [facility] 12/25/2017 16:19:46 Date Recorded Body height Body mass index (BMI) Body weight Systolic And Diastolic Provider Name and Address Organization Details Last Updated DateTime 01/25/2021 165.1 cm 23.6 kg/m2 76905.12 g 138/82 mm[Hg] Radha Wolf MA [facility] 01/25/2021 16:26:24 Date Recorded Body weight Body height Body mass index (BMI) Systolic And Diastolic Provider Name and Address Organization Details Last Updated DateTime 03/12/2016 34115.49 g 164.47 cm 24.5 kg/m2 130/76 mm[Hg] Keira Ordoñez MA [facility] 03/12/2016 16:46:36 Date Recorded Body height Body mass index (BMI) Body weight Systolic And Diastolic Provider Name and Address Organization Details Last Updated DateTime 03/27/2022 165.1 cm 24.3 kg/m2 78397.49 g 142/82 mm[Hg] Radha Wolf MA MA - [facility] 03/27/2022 15:34:54 Social History Question Answer Notes LastModified by Organizat ion Details LastModified Time Tobacco Smoking Status Never Smoker Eduarda HerculesLUIS CARLOS null, [place] - [facility] 02/14/2015 16:07:30 Do You Have An Advance Directive? No Information not available 02/14/2015 What Is Your Level Of Caffeine Consumption? Moderate Information not available 02/14/2015 How Much Tobacco Do You Chew? None Information not available 02/14/2015 What Type Of Diet Are You Following? REGULAR Information not available 02/14/2015 Which Illicit Or Recreational Drugs Have You Used? None Information not available 02/14/2015 Education 12 X1 Yr College Information not available 02/14/2015 Live Alone Or With Others? With Others Information not available 02/14/2015 What Was The Date Of Your Most Recent Tobacco Screening? 03/27/2022 Information not available 03/27/2022 How Many Children Do You Have? 2 Information not available 02/14/2015 Performs Monthly Self-breast Exam? No Information not available 02/14/2015 Do You Use Protection During Sex? No Information not available 02/14/2015 What Is Your Relationship Status? Information not available 02/14/2015 Do You Use Your Seat Belt Or Car Seat Routinely? Yes Information not available 01/25/2021 Seat Belts Used Routinely Yes Information not available 02/14/2015 Are You Sexually Active? Yes Information not available 02/14/2015 Do You Have Smoke And Carbon Monoxide Detectors In Your Home? Yes Information not available 01/25/2021 Are You Passively Exposed To Smoke? No Information not available 01/25/2021 How Much Tobacco Do You Smoke? No [email or web address] Information not available 03/12/2016 General Stress Level Low Information not available 02/14/2015 Do You Use Sunscreen Routinely? No Information not available 02/14/2015 Has Tobacco Cessation Counseling Been Provided? No Information not available 01/25/2021 On What Date Was Tobacco Cessation Counseling Provided? 03/27/2022 Information not available 03/27/2022 How Many Years Have You Smoked Tobacco? 0 [email or web address] Information not available 03/12/2016 Sex: Unknown Functional Status Question Answer Note LastModified by Organizat ion Details LastModified Time Do you use any illicit or recreational drugs? No Information not available 01/25/2021 Do you or have you ever used any other forms of tobacco or nicotine? No Information not available 01/25/2021 What is your level of alcohol consumption? Occasional Information not available 02/14/2015 Do you or have you ever used smokeless tobacco? Never used smokeless tobacco Information not available 12/07/2019 Are you currently employed? 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 Never used electronic cigarettes Information not available 12/07/2019 What is your exercise level? Occasional Information not available 02/14/2015 Mental Status None recorded. Family History Relationship Description Onset Age of this Age Resolved Age Notes LastModified by Organization Details LastModified Time Mother Non-Hodgkin' s lymphoma (clinical) Not available 02/14 16:07:30 Father Asthma Not available 16:07:30 Medical History Condition Response Heart Problems N Other N High Blood Pressure N Breast Cancer N Thyroid Problems N Kidney or Bladder Problems N Lung Disease N Depression N GI Problems N Acne N Breast Problem N Eating Disorder N Anemia N Anesthesia Complications N Headaches/Migraines Y Ovarian Cancer N Diabetes N Anxiety Disorder N Blood Transfusions N Arthritis N Polyps N Infertility N Acid Reflux (GERD) N Cancer N Stroke N Abuse/Domestic Violence N Asthma N Endometriosis N High Cholesterol N Hepatitis N Heart Disease N Fibromyalgia N Pre-Eclampsia N Hypertension N Osteoporosis N Kidney Disease N Gynecological History Statement/Question Response Abnormal Pap Y Date of Last Mammogram 02/26/2021 On BCP's at Conception? Y STIs/STDs N HPV Vaccine N Most Recent Mammogram 01/13/2020 Age at Menarche 14 Current Control Method Tubal Ligat ion Age at First Child 21 Sexually Active? Y Menses Monthly N Date of Last Pap Smear 03/27/2022 Sexual Problems? N LMP Unknown Desired Control Method Sterilizati on Obstetrics History GPAL:G 2 P 2 0 0 2 Type Value Multiple Births 0 Full Term 2 Induced 0 Spontaneous 0 Premature 0 Living 2 Ectopics 0 Total 2 Past Encounters Encounter ID Performer Location Encounter Start Date Encounter Closed Date Diagnosis/Indication Diagnosis SNOMED-CT Code Diagnosis ICD10 Code Diagnosis IMO Codes Diagnosis Note [id number] Mino Reyes MD [facility] ([facility]) [address] [place] [id number] 02/14/2015 15:36:49 02/14/2015 17:01:48 Gynecologic examination 22087001 Z01.419 Headache 30767951 R51 Screening for malignant neoplasm of breast 161229239 Z12.39 Pt has breast implants, should get 3 view for next mammogram Recurrent urinary tract infection 869354764 N39.0 [id number] [facility] [address] [place] [id number] 03/12/2016 15:42:57 03/13/2016 15:18:10 Gynecologic examination 61988981 Z01.419 Screening mammography 24 567472 Z12.31 Menopausal symptom 53358 002 N95.1 [id number] [facility] [address] [place] [id number] 0 12/25/2017 15:21:36 12/25/2017 17:11:05 Gynecologic examination 65985091 Z01.419 Menopausal syndrome 1237 27921 N95.9 Screening mammography 24 768208 Z12.31 Polycystic ovaries 57589 008 E28.2 Mild memor y disturbance 104222026 R41.3 [id number] MD Jonathan Domingo ([employer]) [address] [place] [id number] 0 12/07/2019 15:34:04 12/08/2019 13:29:05 Gynecologic examination 71387402 Z01.419 Exposure t o sexually transmissible disorder 978787681 Z20.2 Screening mammography 24 364541 Z12.31 Menopause 253295204 Z78. 0 [id number] MD Jonathan Domingo ([employer]) [address] [place] [address] 01/25/2021 15:44:31 01/29/2021 10:07:31 Screening for malignant neoplasm of breast 346763407 Z12.39 Pt has breast implants, should get 3 view for next mammogram Menopause 050517931 Z78. 0 Screening for osteoporosis 661928555 Z13.820 Screening for malignant neoplasm of colon 653495187 Z12.11 [id number] JERI FELIZ ([employer]) [address] [place] [id number] 03/27/2022 15:14:17 04/02/2022 12:13:04 Gynecologic examination 67448128 Z01.419 Normal gynecologi c exam today. Cervical cancer screening: Last Pap 2019 was unsatisfac tory, updated pap today Breast cancer screening: Reviewed recommenda tions for initiation at age 40 with annual screening. Discussed SBE Colonoscop y: Cologuard done last year with PCP Diet/exerc ise: Counseled regarding importance of physical activity, healthy diet and appropriat e calcium intake. RTC in 1yr Screening for malignant neoplasm of breast 486677552 Z12.31 Last mammogram was one year ago and was BIRADs 1. Ordered mammogram today. Menopausal syndrome 1237 38931 N95.9 History of migraines. Patient has been taking hormonal therapy for years. Discussed with patient the risk factors of HRT and its indication s. Patient agrees to taper HRT for one month then discontinu e it. Plan to monitor patient's vaginal bleeding and symptoms thereafter . Postmenopa usal bleeding 08202031 N95.0 Patient reports intermitte nt vaginal spotting in the past few years. She states the spotting is infrequent and her last episode of spotting was 2 weeks ago. Menopause status c/b HRT but suspect pt is postmenopa usal. Pelvic exam unremarkab le today. Follow up TVUS and EMB recommende d. Health Concerns Section Related Observation LastModified by Organization Detai ls LastModified Time None Recorded Concern Status LastModified by Organization Details LastModified Time None Recorded Advance Directives Directive N: Payers Insurance Date Sequence Insurance Name Policy Number Policy Melissa Covered Member ID Melissa Member ID Guarantor Name 04/02/2022 1 [facility] [id number] Lizbeth Mascorro [id number] Lizbeth Mascorro Notes Date Note Type Note Provider Name and Address Organization Details Recorded Time 6 text/html Annual GYNReported by PatientGenitourinary symptomsFor menstrual cycle, patient reportsnormal menses. For urinary symptoms, patient reportsno hematuriaandno incontinence. For vulva, patient reportsno genital lesion. For vagina, patient reportsnormal vaginal discharge.Breast symptomsFor breast, patient reportsno breast pain,no breast lump, andno nipple discharge.Endocrine symptomsFor menopausal symptoms, patient reportshot flashesbut reportsnormal vaginal lubrication. For sexual complaints, patient reportsno sexual complaints,no pain during intercourse, andnormal libido.Psychological symptomsFor psychological symptoms, patient reportsno depression,no anxiety, andno pmdd.Preventative measuresFor preventive measures, patient reportsencourage self breast examination,encourage regular exercise,encourage no tobacco use,encourage regular mammograms starting age 40, andfollowed with yearly pap smears.ROS as noted in the HPI 55yo here for annual wwe. Endorsing intermittent hot flashes (<5), weight gain, and memory issues. Mino garcia [facility] 03/12/2016 17:46:33 8 text/html Annual GYNReported by PatientHistoryFor history, patient reportsno gynecologic complaints.Genitourinary symptomsFor menstrual cycle, patient reportsnormal menses. For urinary symptoms, patient reportsno hematuriaandno incontinence. For vulva, patient reportsno genital lesion. For vagina, patient reportsnormal vaginal discharge.Breast symptomsFor breast, patient reportsno breast pain,no breast lump, andno nipple discharge.Endocrine symptomsFor menopausal symptoms, patient reportshot flashesbut reportsnormal vaginal lubrication. For sexual complaints, patient reportsno sexual complaints,no pain during intercourse, andnormal libido.Psychological symptomsFor psychological symptoms, patient reportsno depression,no anxiety, andno pmdd.Preventative measuresFor preventive measures, patient reportsencourage self breast examination,encourage regular exercise,encourage no tobacco use,encourage regular mammograms starting age 40, andfollowed with yearly pap smears.ROS as noted in the HPI 55yo here for annual wwe. Endorsing intermittent hot flashes (<5), weight gain, and memory issues. [facility] 19:40:15 0 text/html Annual GYNReported by PatientHistoryFor history, patient reportsno gynecologic complaints.Genitourinary symptomsFor menstrual cycle, patient reportsnormal menses. For urinary symptoms, patient reportsno hematuriaandno incontinence. For vulva, patient reportsno genital lesion. For vagina, patient reportsnormal vaginal discharge.Breast symptomsFor breast, patient reportsno breast pain,no breast lump, andno nipple discharge.Endocrine symptomsFor menopausal symptoms, patient reportshot flashesbut reportsnormal vaginal lubrication. For sexual complaints, patient reportsno sexual complaints,no pain during intercourse, andnormal libido.Psychological symptomsFor psychological symptoms, patient reportsno depression,no anxiety, andno pmdd.Preventative measuresFor preventive measures, patient reportsencourage self breast examination,encourage regular exercise,encourage no tobacco use,encourage regular mammograms starting age 40, andfollowed with yearly pap smears.ROS as noted in the HPI 59yo hx of tubal ligation, recurrent UTI here for annual wwe. Endorsing intermittent hot flashes (<5), weight gain. Mino garcia, [facility] 12/07/2019 18:14:20 1 text/html Annual GYNReported by PatientHistoryFor history, patient reportsno gynecologic complaints.Genitourinary symptomsFor menstrual cycle, patient reportsnormal menses. For urinary symptoms, patient reportsno hematuriaandno incontinence. For vulva, patient reportsno genital lesion. For vagina, patient reportsnormal vaginal discharge.Breast symptomsFor breast, patient reportsno breast pain,no breast lump, andno nipple discharge.Endocrine symptomsFor menopausal symptoms, patient reportshot flashesbut reportsnormal vaginal lubrication. For sexual complaints, patient reportsno sexual complaints,no pain during intercourse, andnormal libido.Psychological symptomsFor psychological symptoms, patient reportsno depression,no anxiety, andno pmdd.Preventative measuresFor preventive measures, patient reportsencourage self breast examination,encourage regular exercise,encourage no tobacco use,encourage regular mammograms starting age 40, andfollowed with yearly pap smears.ROS as noted in the HPI 59yo hx of tubal ligation, recurrent UTI here for annual wwe. Endorsing intermittent hot flashes (<5), weight gain. Mino Reyes null, [place] - [facility] 01/25/2021 16:39:40 2 text/html ROS as noted in the HPI 61F presents to clinic as new patient for well woman exam. History of unsatisfactory pap in 2019. Patient takes hormone replacement therapy for migraines. She denies any aura. She would like a refill on HRT as she ran out yesterday. Patient states she has been taking this for the past 7-8 years and feels that it works well for her migraines. She states that she doesn't feel like she has gone through menopause because she didn't ever have symptoms of hot flashes, mood swings. Patient does admit to intermittent vaginal spotting in the past few years. She states the spotting is infrequent and last episode of spotting was 2 weeks ago. Patient states she had her cologuard done last year with PCP. CHIQUITA harper. Patient has breast implants bilaterally (2008). Scotty Rodriguez MD Attn: Accounting,[address] [place], [address], [facility] 03/29/2022 14:54:45 OBGyn Episode Ob Episode Information Episode Created Date Number of Fetuses Patient Bloodtype Patient rh Status Prepregnancy Weight lbs Domestic Partner Domestic Partner Phone Father Name Nutrition Specialist Status 03/12/20 16 1 CLOSED Fetus Data First Name Last Name Admitted to NICU Weight (g) Sex Living Outcome Pediatric Complications Fetus ID Race Codes Race Delivery Type 3628.73 6 F Full Term [id number] Christopher Calculation Initial Christopher Date Initial Exam Date Initial Exam Provider Initial Ultrasound Date Last Menstrual Period Date Ultra Sound Weeks Gestation 0 Eighteen To Twenty Week Christopher Update Ultra Sound Date Fundal Height At Umbil Quickening Date Ultra Sound Latest Weeks Gestation Final Christopher Confirmed By Final Christopher Confirmed Date Final Christopher Date Ultra Sound Latest Days Gestation 0 0 Menstrual History Last Menstrual Date Menses Monthly On Bcp Conception Prior Menses Frequency Hcg Plus Date Menarche Onset Age Delivery Information Delivery Date Delivery Type Labor Anesthesia Weeks Gestation Incision Type Labor Labor Length Hrs Delivered By Post Complications Tubal Sterilization Discharge Date Comments 6 Local Discharge Information Feeding Method Contraceptive Method Maternal HG B and HCT Levels Ob Episode Information Episode Created Date Number of Fetuses Patient Bloodtype Patient rh Status Prepregnancy Weight lbs Domestic Partner Domestic Partner Phone Father Name Nutrition Specialist Status 03/12/20 16 1 CLOSED Fetus Data First Name Last Name Admitted to NICU Weight (g) Sex Living Outcome Pediatric Complications Fetus ID Race Codes Race Delivery Type 3628.73 6 M Full Term [id number] Vaginal Christopher Calculation Initial Christopher Date Initial Exam Date Initial Exam Provider Initial Ultrasound Date Last Menstrual Period Date Ultra Sound Weeks Gestation 0 Eighteen To Twenty Week Christopher Update Ultra Sound Date Fundal Height At Umbil Quickening Date Ultra Sound Latest Weeks Gestation Final Christopher Confirmed By Final Christopher Confirmed Date Final Christopher Date Ultra Sound Latest Days Gestation 0 0 Menstrual History Last Menstrual Date Menses Monthly On Bcp Conception Prior Menses Frequency Hcg Plus Date Menarche Onset Age Delivery Information Delivery Date Delivery Type Labor Anesthesia Weeks Gestation Incision Type Labor Labor Length Hrs Delivered By Post Complications Tubal Sterilization Discharge Date Comments 4 None Discharge Information Feeding Method Contraceptive Method Maternal HG B and HCT Levels
[2025-01-11 07:46] VITALS: BP 129/75; PULSE 77; RESP 20; TEMP 36.1; O2SAT 100; BMI 22.3
[2025-01-11] MEDS: LACTATED RINGERS 1,000 ML 150 ML IV CONT (07:59)
--- NOTE | 2025-01-11 08:47 | P.PNAN_ITS ---
Anes - Initial Pre Proc Eval Procedure: Operation Date: 01/11/25 09:00 Proposed Procedures p Screening Colonoscopy - Chavo Heredia DO Date/Time: 01/11/25 08:47 Surgeon: Chavo Heredia DO Pre Op Diagnosis: Neoplasm screening Patient Data Age: 64 Gender: F Height: 1.65 m Weight: 60.9 kg Last Vital Signs Temp 97 F L 01/11/25 07:46 Pulse 77 01/11/25 07:46 Resp 20 01/11/25 07:46 BP 129/75 01/11/25 07:46 Pulse Ox 100 01/11/25 07:46 O2 Del Method Room Air 01/11/25 07:46 Allergies Allergy/AdvReac Type Severity Reaction Status Date / Time codeine AdvReac Unknown Vomiting Verified 01/11/25 07:45 Home Medications ?Medication ?Instructions ?Recorded ?Confirmed ?Type estradiol-norethindrone acet 1 1 tablet PO HS 09/20/19 01/11/25 History mg-0.5 mg tablet Patient hx anesthesia problems: none Family hx anesthesia problems: none Results Review: All pre-operative results and documents have been reviewed as part of the pre- operative evaluation. [facility] Past Medical History Medical History Screening for diabetes mellitus Screening for lipid disorders Screening for colon cancer Shortness of breath Dysuria Family History Family History Mother Family history of lymphoma Father No problems noted. Sibling No problems noted. Social History Social History Smoking status: Never smoker Second hand tobacco smoke exposure: No Alcohol intake: current Drinks per week: 2 Substance use: never Substance use type: does not use Lack of Transportation: No Lack of Food: Never True Current Housing: I Have Housing Concerned About Future Housing: No Difficulty Paying Gas/Electric Bills: No Difficulty Paying for Meds: No Currently Unemployed: No Education: High School Diploma/GED Difficulty w/ Childcare or Family Care: No Living arrangements: with family Occupation/Education: occupation Additional occupation/education comments: [employer], [place] Gender identity (if verbalized by the patient): Female Spiritual care concerns: No Anes - Eval Final PreProcedure Day of Procedure 01/11/25 08:47 Patient weight: normal Lungs: normal air movement Airway: Mallampati scale class II Neurological: alert and oriented Last oral intake: >/= 8 hours ASA classification: I Emergent: no Anesthetic plan: proceed Anesthesia type and monitoring: general GIVS and standard monitoring Results Review: All pre-operative results and documents have been reviewed as part of the pre- operative evaluation. Overall good health, pt can walk 1-2 fos, no cp or sob. Informed Consent: The patient's anesthetic plan and its attendant risks and benefits were discussed with the patient/family/POA. Questions were solicited and answers provided to the satisfaction of the patient/family/POA.
--- NOTE | 2025-01-11 09:01 | P.HP_ITS ---
H&P: HPI History of Present Illness Date/Time: 01/11/25 09:01 Chief Complaint: screening for colorectal cancer Narrative: this is a 64-year-old woman who presents for her 1st colonoscopy. She has had normal Cologuard in the past but has never had a colonoscopy. She denies any hematochezia or melena. She denies any first-degree relatives with history of colon cancer. Review of Systems Review of Systems: All systems reviewed & are unremarkable except as noted in HPI and below Constitutional: Constitutional: Denies chills, Denies fever(s), Denies headache(s) and Denies weight loss Eyes: Eyes: Denies change in vision ENT: Denies dizziness, Denies headache(s), Denies neck mass and Denies throat swelling Cardiovascular: Cardiovascular: Denies chest pain, Denies lightheadedness and Denies dyspnea Respiratory: Respiratory: Denies cough, Denies dyspnea and Denies wheezing Gastrointestinal: Gastrointestinal: Denies abdominal pain, Denies change in bowel habits, Denies nausea and Denies vomiting Genitourinary: Genitourinary: Denies hematuria and Denies dysuria Musculoskeletal: Musculoskeletal: Reports as per HPI Integumentary/Breasts: Skin/Breast: Reports as per HPI Neurologic: Denies dizziness and Denies headache(s) Allergic/Immunologic: Allergic/Immunologic: Denies throat swelling and Denies wheezing PMFSH Past Medical History Medical History Screening for diabetes mellitus Screening for lipid disorders Screening for colon cancer Shortness of breath Dysuria Family History Family History Mother Family history of lymphoma Father No problems noted. Sibling No problems noted. Social History Social History Smoking status: Never smoker Second hand tobacco smoke exposure: No Alcohol intake: current Drinks per week: 2 Substance use: never Substance use type: does not use Lack of Transportation: No Lack of Food: Never True Current Housing: I Have Housing Concerned About Future Housing: No Difficulty Paying Gas/Electric Bills: No Difficulty Paying for Meds: No Currently Unemployed: No Education: High School Diploma/GED Difficulty w/ Childcare or Family Care: No Living arrangements: with family Occupation/Education: occupation Additional occupation/education comments: [employer] Gender identity (if verbalized by the patient): Female Spiritual care concerns: No Meds Home Medications and Allergies Home Medications ?Medication ?Instructions ?Recorded ?Confirmed ?Type estradiol-norethindrone acet 1 1 tablet PO HS 09/20/19 01/11/25 History mg-0.5 mg tablet Allergies Allergy/AdvReac Type Severity Reaction Status Date / Time codeine AdvReac Unknown Vomiting Verified 01/11/25 07:45 Vital Signs Vital Signs - 24 hr 01/11/25 07:46 Temperature 97 F L Pulse Rate 77 Respiratory Rate 20 Blood Pressure 129/75 Pulse Oximetry 100 Oxygen Delivery Room Air Exam Const: General: no acute distress and alert Orientation/consciousness: patient oriented x3 HENMT: Head: normocephalic and atraumatic Ears: hearing grossly normal bilaterally Face/Nose/Sinus: Normal nares present Mouth: Yes Normal oral and palatal mucosa present Eyes: Periorbital: periorbital findings normal Sclera: sclerae normal EOM: EOMs intact bilaterally Neck: Neck: normal visual inspection, no lymphadenopathy and trachea midline Chest: Chest palpation & inspection: normal inspection of the chest Resp: Effort & Inspection: normal respiratory effort Auscultation: clear to auscultation bilaterally Cardio: Jugular venous distension: no JVD Rate: regular rate Rhythm: regular rhythm Heart sounds: S1 normal heart sound present and S2 normal heart sound present Peripheral pulses: Peripheral pulses 2+ throughout GI: Inspection: normal to inspection GI Palp: Yes Soft to palpation, No Tenderness to palpation present (GI), No Guarding due to palpation present (GI) and No Rebound tenderness present Percussion: Yes normal to percussion Auscultation: normal bowel sounds : General: Yes no CVA tenderness Back/Spine/Pelvis: Back: no CVA tenderness Neuro: General: patient oriented x3, no focal motor deficits and CN's II-XI intact bilaterally Cognition (Neuro): normal cognition Speech: normal speech Motor exam (neuro): 5/5 motor strength present throughout Extrem: General: capillary refill normal and no clubbing, cyanosis or edema Assessment and Plan Assessment and plan (1) Screening for colon cancer: Code(s): Z12.11 - Encounter for screening for malignant neoplasm of colon Status: Acute Assessment and Plan: I have recommended colonoscopy. I have discussed the procedure, risks, benefits, and alternatives. Questions were answered. Patient is agreeable to proceed.
[2025-01-11 09:28] VITALS: BP 96/56; PULSE 72; RESP 22; O2SAT 100
[2025-01-11 09:38] VITALS: BP 99/55; PULSE 74; RESP 25; O2SAT 100
[2025-01-11 09:48] VITALS: BP 120/76; PULSE 72; RESP 21; O2SAT 100
== END 2025-01-11 09:57 | disposition home or self-care (01) ==
PROVIDERS: PCP Family Medicine; Visit Provider Surgery
PROC: 0DJD8ZZ Inspection of Lower Intestinal Tract, Via Natural or Artificial Opening Endoscopic (ICD-10-PCS; CPT 45378; principal; 2025-01-11 09:00)
DX: Z12.11 Encounter for screening for malignant neoplasm of colon (principal); Z80.7 Family history of other malignant neoplasms of lymphoid, hematopoietic and related tissues
CPT/HCPCS: 45378; J2003; J2704; J7120